=== PATIENT | male | born 1965 | race Caucasian/White ===

== ENCOUNTER 2020-04-05 18:29 | Inpatient (IN) | payer SELFPAY ==
[~2020-04-05] VITALS: Ht 167.6 cm; Wt 83.4 kg
--- NOTE | 2020-04-05 18:53 | NUR ---
RECEICVED TRIAGE REPORT FROM ROYER CLARK
[2020-04-05 19:38] LABS: URINE BILIRUBIN - DIPSTICK NEGATIVE (NEGATIVE); URINE BLOOD DIPSTICK TRACE-INTACT (NEGATIVE); URINE COLOR YELLOW; URINE GLUCOSE - DIPSTICK >=1000 mg/dL (NEGATIVE); URINE KETONE NEGATIVE (NEGATIVE); URINE LEUK ESTERASE NEGATIVE (NEGATIVE); URINE NITRITE - DIPSTICK NEGATIVE (Negative); URINE PROTEIN - DIPSTICK >=300 mg/dL (NEG-TRACE); URINE SPECIFIC GRAVITY 1.025; URINE UROBILINOGEN - DIPSTICK >=8.0 E.U./dL (0.2)
[2020-04-05 19:40] LABS: URINE RBC 0-2 RBC/hpf (0-5); URINE WBC 0-2 WBC/hpf (0-5)
[2020-04-05 19:40] LABS: HEMATOCRIT 41.5 % (39.0-50.0); HEMOGLOBIN 15.4 g/dl (14.0-18.0); IMMATURE GRANULOCYTES 0.3 % (0.0-5.0); MEAN CELL VOLUME 82.8 fL CALC (80.0-100.0); MEAN CORPUSCULAR HGB 30.7 pG CALC (26.0-32.0); MEAN CORPUSCULAR HGB CONC 37.1 g/dL CAL (32.0-36.0); NEUT# 2.93 thou/uL (1.82-7.42); RED BLOOD COUNT 5.01 mill/uL (4.70-6.10); RED CELL DISTRI WIDTH 10.6 % (11.5-15.5)
[2020-04-05 19:55] LABS: ALBUMIN 3.6 g/dL (3.2-5.0); ALKALINE PHOSPHATASE 144 u/l (38-126); AMYLASE 69 u/l (30-110); ANION GAP 12 (6-22 (CALC)); BILIRUBIN, TOTAL 1.5 mg/dL (0.0-1.4); BUN 12 mg/dL (9-20); BUN/CREATININE RATIO 20 (12-20 (CALC)); CARBON DIOXIDE 25 mmol/l (22-30); CHLORIDE 98 mmol/l (95-108); CREATININE 0.6 mg/dL (0.7-1.3); GFR > 60 ML/MIN (>=60 (CALC)); GFR FOR AFR.AMER. > 60 ML/MIN (>=60 (CALC)); LIPASE 102 u/l (23-300); POTASSIUM 3.7 mmol/l (3.5-5.1); SGOT/AST 66 u/l (17-59); SODIUM 132 mmol/l (137-146); TOTAL PROTEIN 7.3 g/dL (6.3-8.2)
--- NOTE | 2020-04-05 21:00 | NUR ---
RESTING QUIETLY, NO C/O PAIN OR DISCOMFORT, NO S/SD OF DISTRESS NOTED.
--- NOTE | 2020-04-05 22:41 | NUR ---
PATIENT RESTING QUIETLY, NO C/O PAIN OR DISCOMFORT AT THIS TIME, NO S/S OF DISTRESS NOTED, RESPIRATIONS EVEN AND SLIGHTLY LABORED. AWAKE AND ALERT, PATIENT STATES FEELING MUCH BETTER.
--- NOTE | 2020-04-06 00:10 | NUR ---
REPORT RECEIVED FROM Brennan DAVILA RN IN ED
--- NOTE | 2020-04-06 00:12 | NUR ---
HAND OFF REPORT GIVEN TO ROYER MARTINEZ.
--- NOTE | 2020-04-06 00:20 | NUR ---
PATIENT ESCORTED TO INPATIENT ROOM BY WHEELCHAIR, NO C/O PAIN OR DISCOMFORT, NO S/S OF DISTRESS NOTED, RESPIRATIONS EVEN AND UNLABORED, ABLE TO AMBULATE INDEPENDENTLY.
[2020-04-06 00:25] VITALS: BP 123/74
--- NOTE | 2020-04-06 02:20 | NUR ---
PT ARRIVES TO UNIT @ 0220 VIA WC, AMBULATORY TO BED. GAIT STEADY AND BALANCED. PT ADMITTED TO ROOM 283. ORIENTED TO UNIT AND ROOM. PLAN OF CARE REVIEWED. PT DENIES QUESTIONS, VERBALIZES UNDERSTANDING. PHYSICAL ASSESMENT COMPLETE. PT DENIES NEEDS @ THIS TIME. ITEMS WITHIN REACH. BED LOCKED IN LOW POSITION W/ BEDRAILS UP X2. CALL RAMIREZ WITHIN REACH, AGREES TO CALL PRN.
[2020-04-06 03:33] VITALS: BP 135/78
--- NOTE | 2020-04-06 05:40 | NUR ---
AM LABS DRAWN.
[2020-04-06 06:17] LABS: HEMATOCRIT 38.3 % (39.0-50.0); HEMOGLOBIN 13.6 g/dl (14.0-18.0); IMMATURE GRANULOCYTES 0.3 % (0.0-5.0); MEAN CELL VOLUME 85.5 fL CALC (80.0-100.0); MEAN CORPUSCULAR HGB 30.4 pG CALC (26.0-32.0); MEAN CORPUSCULAR HGB CONC 35.5 g/dL CAL (32.0-36.0); NEUT# 2.28 thou/uL (1.82-7.42); RED BLOOD COUNT 4.48 mill/uL (4.70-6.10); RED CELL DISTRI WIDTH 10.6 % (11.5-15.5)
[2020-04-06 06:37] LABS: ALBUMIN 3.1 g/dL (3.2-5.0); ALKALINE PHOSPHATASE 116 u/l (38-126); ANION GAP 9 (6-22 (CALC)); BILIRUBIN, TOTAL 1.4 mg/dL (0.0-1.4); BUN 11 mg/dL (9-20); BUN/CREATININE RATIO 16 (12-20 (CALC)); C-REACTIVE PROTEIN 8.4 mg/dL (0-0.9); CARBON DIOXIDE 27 mmol/l (22-30); CHLORIDE 102 mmol/l (95-108); CREATININE 0.7 mg/dL (0.7-1.3); GFR > 60 ML/MIN (>=60 (CALC)); GFR FOR AFR.AMER. > 60 ML/MIN (>=60 (CALC)); POTASSIUM 3.8 mmol/l (3.5-5.1); SGOT/AST 59 u/l (17-59); SODIUM 134 mmol/l (137-146); TOTAL PROTEIN 6.4 g/dL (6.3-8.2)
[2020-04-06 08:10] VITALS: BP 122/68
--- NOTE | 2020-04-06 09:00 | NUR ---
PT IS ALERT, ORIENTED X 3, AMBULATORY IN THE ROOM. LUNGS CLEAR, RA. NO DISTRESS NOTED, NO SHORTNESS OF BREATH MENTION. IV INFUSING. AFEBRILE.
[2020-04-06 11:00] VITALS: BP 155/91
--- NOTE | 2020-04-06 13:00 | NUR ---
PT REMAINS AT REST IN THE BED WITHOUT COMPLAINT OR EVIDENCE OF DISTRESS.
[2020-04-06 15:52] VITALS: BP 180/88
[2020-04-06 19:00] VITALS: BP 160/84
--- NOTE | 2020-04-06 19:30 | NUR ---
ASSESSMENT COMPLETED. NO DISTRESS NOTED; DENIES NEEDS/PAIN. ENCOURAGED TO CALL FOR ANY NEEDS. PT. REPORTS PRODUCTIVE COUGH; NONE TO INSPECT AT THIS TIME. ENCOURAGED TO CALL FOR ANY NEEDS. CALL LIGHT IS IN REACH. WILL CONTINUE TO MONITOR.
--- NOTE | 2020-04-06 21:02 | NUR ---
PT. RESTING IN BED ON PHONE. NO DISTRESS NOTED. DENIES NEEDS.
--- NOTE | 2020-04-07 00:20 | NUR ---
RESTING IN BED ON LEFT SIDE WITH NO DISTRESS NOTED; DENIES NEEDS. URINAL EMPTIED; SCHED ANTIBIOTIC HUNG. ENCOURAGED TO CALL FOR ANY NEEDS. CALL LIGHT IS IN REACH.
[2020-04-07 04:20] VITALS: BP 153/83
[2020-04-07 08:00] VITALS: BP 124/67
--- NOTE | 2020-04-07 09:00 | NUR ---
PT AWAKE, ALERT, ORIENTED X 3, SEEN AMBULATORY IN ROOM WITHOUT DIFFICULTY. NO COMPLAINT OF SHORTNESS OF BREATH OR OTHERWISE.
--- NOTE | 2020-04-07 13:00 | NUR ---
PT SEEN BY DR NIEVES, TO CONTINUE TO MONITOR HIS PROGRESS FOR ANOTHER DAY. PT IN NO DISTRESS, DOES HAVE INTERMITTENT TEMPERATURE ELEVATION.
[2020-04-07 15:27] VITALS: BP 138/64
--- NOTE | 2020-04-07 16:48 | NUR ---
PT RUNNING LOW GRADE FEVER OF 100.6, PROVIDED TYLENOL, NOW 100.9. DR NIEVES AWARE, AWAITING NEW ORDERS.
[2020-04-07 19:00] VITALS: BP 158/88
--- NOTE | 2020-04-07 20:09 | NUR ---
PT. C/O BUI 06/21 AND MEDICATED WITH ORDERED PRN MOTRIN; WILL REASSESS. PO FLUIDS OFFERED. ASSESSMENT COMPLETED. VOICES NO CONCERNS. ENCOURAGED TO CALL FOR ANY NEEDS. CALL LIGHT IS IN REACH. WILL CONTINUE TO MONITOR.
--- NOTE | 2020-04-07 23:08 | NUR ---
PT. C/O BUI AND MEDICATED WITH ORDERED PRN TYLENOL; WILL REASSESS. TEMP 97.3; WILL CONTINUE TO MONITOR.
[2020-04-08 03:05] VITALS: BP 106/69
--- NOTE | 2020-04-08 03:05 | NUR ---
AM LABS OBTAINED AND VSS; NO DISTRESS NOTED; DENIES NEEDS/PAIN. ENCOURAGED TO CALL FOR ANY NEEDS.
[2020-04-08 04:25] LABS: HEMATOCRIT 40.5 % (39.0-50.0); IMMATURE GRANULOCYTES 0.3 % (0.0-5.0); MEAN CELL VOLUME 83.3 fL CALC (80.0-100.0); MEAN CORPUSCULAR HGB 30.9 pG CALC (26.0-32.0); NEUT# 1.89 thou/uL (1.82-7.42); RED BLOOD COUNT 4.86 mill/uL (4.70-6.10); RED CELL DISTRI WIDTH 10.6 % (11.5-15.5)
[2020-04-08 04:38] LABS: ALBUMIN 3.1 g/dL (3.2-5.0); ALKALINE PHOSPHATASE 117 u/l (38-126); ANION GAP 12 (6-22 (CALC)); BILIRUBIN, TOTAL 1.5 mg/dL (0.0-1.4); BUN 7 mg/dL (9-20); BUN/CREATININE RATIO 13 (12-20 (CALC)); CARBON DIOXIDE 24 mmol/l (22-30); CHLORIDE 103 mmol/l (95-108); CREATININE 0.6 mg/dL (0.7-1.3); GFR > 60 ML/MIN (>=60 (CALC)); GFR FOR AFR.AMER. > 60 ML/MIN (>=60 (CALC)); POTASSIUM 3.6 mmol/l (3.5-5.1); SGOT/AST 69 u/l (17-59); SODIUM 135 mmol/l (137-146); TOTAL PROTEIN 6.6 g/dL (6.3-8.2)
[2020-04-08 04:54] LABS: C-REACTIVE PROTEIN 16.2 mg/dL (0-0.9)
--- NOTE | 2020-04-08 06:54 | NUR ---
NOTIFIED DR. NIEVES OF POSITIVE COVID SWAB RESULT.
[2020-04-08 08:00] VITALS: BP 136/75
--- NOTE | 2020-04-08 09:00 | NUR ---
PT SEEN AWAKE, ALERT, ORIENTED X 3. PT WITH FEVER THIS MORNING OF 100.9, PROVIDED MOTRIN FOR THAT AND HEADACHE.
--- NOTE | 2020-04-08 13:00 | NUR ---
PT SEEN AT REST IN THE BED, PROVIDED MOTRIN FOR RELIEF OF HEADACHE PAIN AND FEVER. PT TEARFUL UPON ENTERING ROOM, PERHAPS A BIT FRUSTRATED. NO DISTRESS, NO COMPLAINTS.
[2020-04-08 16:07] VITALS: BP 131/67
--- NOTE | 2020-04-08 17:52 | NUR ---
PT REMAINS BEFORE, RESTS IN THE BED IN NO ACUTE DISTRESS.
[2020-04-08 19:20] VITALS: BP 138/85
--- NOTE | 2020-04-08 19:20 | NUR ---
PT. SITTING UP ON THE SIDE OF THE BED EATING DINNER;ASSESSMENT COMPLETED. NO DISTRESS NOTED; DENIES NEEDS/PAIN. VSS. URINAL EMPTIED. ENCOURAGED TO CALL FOR ANY NEEDS. CALL LIGHT IS IN REACH.
--- NOTE | 2020-04-08 21:10 | NUR ---
PT. RESTING IN BED WITH NO DISTRESS NOTED; DENIES NEEDS/PAIN. URINAL EMPTIED. ENCOURAGED TO CALL FOR ANY NEEDS.
--- NOTE | 2020-04-08 23:20 | NUR ---
TEMP CHECKED AND IS 97.0; DENIES NEEDS/PAIN. ENCOURAGED TO CALL FOR ANY NEEDS. CALL LIGHT IS IN REACH. WILL CONTINUE TO MONITOR.
[2020-04-09 03:35] VITALS: BP 137/75
--- NOTE | 2020-04-09 03:35 | NUR ---
VSS. AM LABS OBTAINED. DENIES NEEDS/PAIN. IV SITE PATENT AND ORDERED IVF INFUSING WELL. ENCOURAGED TO CALL FOR ANY NEEDS. URINAL EMPTIED AND REPORTS HAVING A BM LAST NIGHT.
--- NOTE | 2020-04-09 05:00 | NUR ---
RESTING IN BED WITH EYES CLOSED; NO DISTRESS NOTED. CALL LIGHT IS IN REACH.
[2020-04-09 05:21] LABS: HEMATOCRIT 38.5 % (39.0-50.0); IMMATURE GRANULOCYTES 0.5 % (0.0-5.0); MEAN CELL VOLUME 83.2 fL CALC (80.0-100.0); MEAN CORPUSCULAR HGB 30.2 pG CALC (26.0-32.0); MEAN CORPUSCULAR HGB CONC 36.4 g/dL CAL (32.0-36.0); NEUT# 2.93 thou/uL (1.82-7.42); RED BLOOD COUNT 4.63 mill/uL (4.70-6.10); RED CELL DISTRI WIDTH 10.6 % (11.5-15.5)
[2020-04-09 05:42] LABS: ALBUMIN 3.3 g/dL (3.2-5.0); ALKALINE PHOSPHATASE 119 u/l (38-126); BILIRUBIN, TOTAL 1.2 mg/dL (0.0-1.4); BUN 12 mg/dL (9-20); BUN/CREATININE RATIO 25 (12-20 (CALC)); CHLORIDE 107 mmol/l (95-108); CREATININE 0.5 mg/dL (0.7-1.3); GFR > 60 ML/MIN (>=60 (CALC)); GFR FOR AFR.AMER. > 60 ML/MIN (>=60 (CALC)); POTASSIUM 3.9 mmol/l (3.5-5.1); SGOT/AST 60 u/l (17-59); SODIUM 136 mmol/l (137-146); TOTAL PROTEIN 6.7 g/dL (6.3-8.2)
[2020-04-09 05:51] LABS: ANION GAP 15 (6-22 (CALC)); CARBON DIOXIDE 18 mmol/l (22-30)
[2020-04-09 08:40] VITALS: BP 134/72
--- NOTE | 2020-04-09 08:40 | NUR ---
ASSESSMENT IS COMPLETED: IV SITE IS FREE FROM REDNESS OR EDEMA. HR IS REG,PULSES ARE STRONG X4, ABD IS SOFT WITH ACTIVE BS. BREATH SOUNDS ARE CLEAR, BILATERALLY, HAS SOME SPUTUM BROWNISH. THIN. CONTINUE TO OBSERVE AND MONITOR.
[2020-04-09 10:45] VITALS: BP 151/81
--- NOTE | 2020-04-09 12:45 | NUR ---
CONCERNED ABOUT PT O2 NO DISTRESS NOTED. WAS 88% ON RA. WILL CONTINUE TO RECHECK. IV SITE IS FREE FROM REDNESS ORE JOE. CONTINEU TO OBSERVE AND MONITOR.
[2020-04-09 16:29] VITALS: BP 118/79
--- NOTE | 2020-04-09 16:45 | NUR ---
O2 SAT REMAINED AT 88%, NO DISTRESS NOTED. INQUIRED OF PT WAS HAVING ANY CP OR SOB, WHEN GETTING IN THE SHOWER THEN HAD SOME SOB. PLACED O2 ON PT SOON HE CAME OUT OF THE SHOWER.
[2020-04-09 19:42] VITALS: BP 142/79
--- NOTE | 2020-04-09 21:10 | NUR ---
PT WATCHING SOMETHING ON CELLPHONE. LIGHTS ARE OUT. PT ASSESSMENT COMPLETED AT THIS TIME. 02 SAT LEVELS ARE AT 88% ON 1L SET UPON ENTERING ROOM. 02 TITRATED UP, PT IS AT 4L SAT HOLDING @90% WILL CONTINUE TO MONITOR FOR SAT LEVELS.
--- NOTE | 2020-04-09 21:30 | NUR ---
PT OXYGEN SAT LEVEL 90% ON 4L, SAT LEVELS DROP IF OXYGEN TURNED TO 3L OR LOWER.
--- NOTE | 2020-04-09 23:22 | NUR ---
ANTIBIOTIC THERAPY ADMINISTERED AT THIS TIME. CALL LIGHT AT SIDE.
[2020-04-10] VITALS (12 sets, daily range): BP systolic 128–158; BP diastolic 66–94
--- NOTE | 2020-04-10 05:20 | NUR ---
PT MEDICATED ORDERS PROVIDE, LABS DRAWN AT THIS TIME. CALL LIGHT AT SIDE.
[2020-04-10 06:06] LABS: HEMATOCRIT 35.5 % (39.0-50.0); HEMOGLOBIN 13.1 g/dl (14.0-18.0); IMMATURE GRANULOCYTES 0.5 % (0.0-5.0); MEAN CELL VOLUME 82.6 fL CALC (80.0-100.0); MEAN CORPUSCULAR HGB 30.5 pG CALC (26.0-32.0); MEAN CORPUSCULAR HGB CONC 36.9 g/dL CAL (32.0-36.0); NEUT# 4.81 thou/uL (1.82-7.42); RED BLOOD COUNT 4.3 mill/uL (4.70-6.10); RED CELL DISTRI WIDTH 10.6 % (11.5-15.5)
[2020-04-10 06:45] LABS: ALBUMIN 2.9 g/dL (3.2-5.0); ALKALINE PHOSPHATASE 114 u/l (38-126); ANION GAP 13 (6-22 (CALC)); BILIRUBIN, TOTAL 1.2 mg/dL (0.0-1.4); BUN 12 mg/dL (9-20); BUN/CREATININE RATIO 21 (12-20 (CALC)); CARBON DIOXIDE 20 mmol/l (22-30); CHLORIDE 103 mmol/l (95-108); CREATININE 0.6 mg/dL (0.7-1.3); GFR > 60 ML/MIN (>=60 (CALC)); GFR FOR AFR.AMER. > 60 ML/MIN (>=60 (CALC)); POTASSIUM 3.6 mmol/l (3.5-5.1); SGOT/AST 49 u/l (17-59); SODIUM 133 mmol/l (137-146); TOTAL PROTEIN 6.4 g/dL (6.3-8.2)
[2020-04-10 07:06] LABS: C-REACTIVE PROTEIN 12.6 mg/dL (0-0.9)
--- NOTE | 2020-04-10 08:30 | NUR ---
ASSESSMENT IS COMPLETED: IV SITE IS FREE FROM REDNESS OR EDEMA. HR IS REG,PULSES ARE STRONG X4, ABD IS SOFT WITH ACTIVE BS. BM TODAY. CONTINEU TO OBSERVE AND MONITOR. O2 KEEPS DROPPING TO 83% UP TO 5 LITERS NOW 92%
--- NOTE | 2020-04-10 12:31 | NUR ---
INFORMED BY KENTRELL ZAMORA RE: PT BEING MOVED TO ICU. DUE TO O2 LEVEL AND ON 5 LITERS
--- NOTE | 2020-04-10 14:03 | NUR ---
JERILYN SAM FROM OR RECEIVED A CALL FROM FAMILY RE: PT INQUIRING ABOUT WHAT IS GOING ON. INFORMED OF PT GOING TO BE TRANSFERRED TO ICU DUE TO O2 LEVEL BEING LOW AND NOT SUSTAINING. ALSO THE NEW MEDICATION HAS TO BE ORDERED. FROM THE STATE. WILL INFORM FAMILY SOON WE GET A ROOM.
--- NOTE | 2020-04-10 15:07 | NUR ---
report received from Kym Alonso LPN
--- NOTE | 2020-04-10 15:50 | NUR ---
male pt received to ICU bed 3 from med surg via wc accompanied by med surg staff x2 in stable condition; ambulatory to bed with steady gait; assessment completed at this time; Cecil Rodas RN present at bedside to interpret; pt alert and oriented; admits to chest pain from coughing; no n/v noted; resp even and unlabored; lungs clear/ diminished bases; skin color wnl; o2 per nc at 5L; manager poker cough noted; hr reg; strong pulses; no edema noted; st on monitor; abd soft with bs present; no bm noted per poem writer; pt admits to voiding without complication; no urine to inspect at this time; urinal placed at bedside; #18 patent to rac with ivf infusing without complication; no redness or edema noted at site; plan of care/ meds/ transfer explained; call light within reach; will continue to monitor
--- NOTE | 2020-04-10 16:00 | NUR ---
PT TRANSFERRED TO ROOM 3 VIA WC WITH STAFF AND BELONGINGS. IV SITE IS FREE FROM REDNESS OR EDEMA. ALL BELONGINGS. SENT WITH PT.
--- NOTE | 2020-04-10 18:06 | NUR ---
awake in bed eating dinner; no apparent distress noted; pt offers no complaints; iv intact and patent; no redness or edema noted at site; st on monitor; o2 per nc; call light within reach
--- NOTE | 2020-04-10 20:00 | NUR ---
RECEIVED REPORT. BEDRESTING. RESP EVEN AND NONLABORED. WATCHING TV. N/C OR DISTRESS NOTED AT THIS TIME
--- NOTE | 2020-04-10 21:30 | NUR ---
BEDRESTING. EATING AND DRINKING. FAMILY BROUGHT A JUG OF HOT TEA/COFFEE (AND DROPPED OFF) PT SAID WARM FLUIDS FEEL BETTER.
--- NOTE | 2020-04-10 23:30 | NUR ---
BEDRESTING. WATCHING BOXING ON TV. SELDOM COUGHS BUT STATES HE DOES HAVE SOME PLEM THAT SOMES UP WHEN HE COUGHS. NO SOB NOTED AT THIS TIME
[2020-04-11] VITALS (11 sets, daily range): BP systolic 121–165; BP diastolic 59–92
--- NOTE | 2020-04-11 00:58 | NUR ---
BEDRESTING. SLEEPING ON RIGHT SIDE-RESP EVEN AND NONLABORED. AFEBRILE.
--- NOTE | 2020-04-11 02:34 | NUR ---
BEDRESTING. LIGHTS OUT. TV OFF. RESP EVEN AND NONLABORED. NO DISTRESS NOTED
--- NOTE | 2020-04-11 04:00 | NUR ---
BEDRESTING. NO COUGH OR DISTRESS
[2020-04-11 05:19] LABS: HEMATOCRIT 36.3 % (39.0-50.0); HEMOGLOBIN 13.6 g/dl (14.0-18.0); IMMATURE GRANULOCYTES 0.8 % (0.0-5.0); MEAN CELL VOLUME 82.1 fL CALC (80.0-100.0); MEAN CORPUSCULAR HGB 30.8 pG CALC (26.0-32.0); MEAN CORPUSCULAR HGB CONC 37.5 g/dL CAL (32.0-36.0); NEUT# 4.92 thou/uL (1.82-7.42); RED BLOOD COUNT 4.42 mill/uL (4.70-6.10); RED CELL DISTRI WIDTH 10.6 % (11.5-15.5)
[2020-04-11 05:39] LABS: ALBUMIN 3.3 g/dL (3.2-5.0); ALKALINE PHOSPHATASE 114 u/l (38-126); ANION GAP 13 (6-22 (CALC)); BILIRUBIN, TOTAL 1.3 mg/dL (0.0-1.4); BUN 16 mg/dL (9-20); BUN/CREATININE RATIO 26 (12-20 (CALC)); CARBON DIOXIDE 23 mmol/l (22-30); CHLORIDE 103 mmol/l (95-108); CREATININE 0.6 mg/dL (0.7-1.3); GFR > 60 ML/MIN (>=60 (CALC)); GFR FOR AFR.AMER. > 60 ML/MIN (>=60 (CALC)); POTASSIUM 3.7 mmol/l (3.5-5.1); SGOT/AST 38 u/l (17-59); SODIUM 135 mmol/l (137-146); TOTAL PROTEIN 6.7 g/dL (6.3-8.2)
--- NOTE | 2020-04-11 06:00 | NUR ---
BEDRESTING. N/C AT THIS TIME
[2020-04-11 06:06] LABS: C-REACTIVE PROTEIN 13.6 mg/dL (0-0.9)
--- NOTE | 2020-04-11 06:40 | NUR ---
BEDRESTING. NO DISTRESS AT THIS TIME
--- NOTE | 2020-04-11 06:55 | NUR ---
REPORT GIVEN. BEDRESTING
--- NOTE | 2020-04-11 07:45 | NUR ---
PT RESTING IN BED, A&OX3, ABLE TO MAKE NEEDS KNOWN. RESPIRATIONS EVEN/UNLABORED, SOB WITH MINIMAL EXERTION. LS CLEAR/DIMISHED, SA02@93% ON 5LPM/NC. ABDOMEN SOFT,NON-TENDER. LBM 7-1-20. 18G RAC/SL. FLUSHES WITHOUT DIFFICULTY, NO S/S OF INFILTRATION OR INFECTION AT SITE. CALL LIGHT IN REACH. WILL MONITOR.
--- NOTE | 2020-04-11 08:00 | NUR ---
PT UP TO BSC FOR BM. PT STEADY ON HIS FEET.
--- NOTE | 2020-04-11 08:08 | NUR ---
PT ASSISTED BACK TO BED AFTER MODERATE DARK BROWN FORMED BM. RESUMED BREAKFAST.
--- NOTE | 2020-04-11 08:33 | NUR ---
DR. CAST AT BEDSIDE FOR ASSESSMENT AND TO DISCUSS PLAN OF CARE, NEW ORDERS RECIEVED.
--- NOTE | 2020-04-11 09:00 | NUR ---
PT SET UP FOR SELF BATH. PT TOLERATED WELL.
--- NOTE | 2020-04-11 10:00 | NUR ---
PT ASSISTED TO PRONE POSITION, PT TOLERATED WELL. CALL LIGHT IN REACH. WILL MONITOR.
--- NOTE | 2020-04-11 11:30 | NUR ---
DIETARY ON UNIT, PT DECLINED TRAY SET UP AT THIS TIME. PT CONTINUES IN PRONE POSITION. CALL LIGHT IN REACH. WILL MONITOR.
--- NOTE | 2020-04-11 13:50 | NUR ---
PT RESTING IN SUPINE WITH HOB UP. NO DISTRESS NOTED AT THIS TIME. CALL LIGHT IN REACH. WILL MONITOR.
--- NOTE | 2020-04-11 15:15 | NUR ---
PT RESTING BACK IN PRONE, INTERMITTENT COUGH NOTED WITH THIN WHIT MUCOUS. RESPIRATIONS EVEN/UNLABORED, REMAIN SOB WITH EXERTION, CALL LIGHT IN REACH. WILL MONITOR.
--- NOTE | 2020-04-11 16:31 | NUR ---
PT SITTING UP IN BED, TALKING ON PERSONAL CELL PHONE. CALL LIGHT IN REACH. WILL MONITOR.
--- NOTE | 2020-04-11 18:23 | NUR ---
PT RESTING IN BED WATCHING TV, ENCOURAGED TO PRONE POSITION, CALL LIGHT IN REACH. WILL MONITOR.
--- NOTE | 2020-04-11 20:45 | NUR ---
PATIENT RESTING IN BED TALKING ON PHONE. SHIFT ASSESSMENT COMPLETE. NO DISTRESS NOTED. ASSISTED PATIENT TO BEDSIDE COMODE. VS STABLE. RESPIRATIONS EVEN AND UNLABORED. LUNGS DIMINISHED. LBM 04/11/20. PATIENT VOIDS IN URINAL. DENIES NAUSEA. PRODUCTIVE COUGH. IV PATENT. CALL LIGHT IN REACH. WILL CONTINUE TO MONITOR.
--- NOTE | 2020-04-11 22:08 | NUR ---
PATIENT RESTING IN BED. NO DISTRESS NOTED. CALL LIGHT IN REACH. CONTINUE TO MONITOR.
[2020-04-12] VITALS (12 sets, daily range): BP systolic 111–171; BP diastolic 66–90
--- NOTE | 2020-04-12 00:10 | NUR ---
PATIENT SLEEPING ON RT SIDE. NO DISTRESS NOTED. RESPIRATIONS EVEN AND UNLABORED. MEDICATIONS ADMINISTERED PER MAR. CONTINUE TO MONITOR.
--- NOTE | 2020-04-12 02:00 | NUR ---
PATIENT RESTING IN BED. RESP EVEN AND UNLABORED. WILL CONTINUE TO MONITOR.
--- NOTE | 2020-04-12 04:56 | NUR ---
PATIENT SLEEPING. NO DISRESS NOTES. CONTINUE TO MONITOR.
--- NOTE | 2020-04-12 06:39 | NUR ---
PATIENT SLEEPING LAYING ON RT SIDE. NO DISTRESS NOTED. ADMINISTERED ZOSYN PER DEC. URINE OUTPUT 900.
--- NOTE | 2020-04-12 06:45 | NUR ---
RECIEVED REPORT FROM ROYER DUMONT. ASSUMED PT CARE.
--- NOTE | 2020-04-12 07:15 | NUR ---
PT RESTING IN BED IN SUPINE POSITION. PT SA02@90% ON 5LPM/NC VIA HF, PT ROTATED TO PRONE POSITION AND IMMEDIATE IMPROVEMENT NOTED IN SA02@ 100%. PT A70X3, ABLE TO MAKE NEEDS KNOWN. RESPIRATIONS EVEN/UNLABORED, LS CLEAR/DIMINISHED. ABDOMEN SOFT, NON-TENDER, LBM 7-2-20. 18G RAC/SL, FLUSHES WITHOUT DIFFICULTY, NO S/S OF INFILTRATION OR INFECTION NOTED AT SITE. CALL LIGHT IN REACH. WILL MONITOR.
--- NOTE | 2020-04-12 07:30 | NUR ---
DIETARY ON UNIT, PT DECLINED TRAY AT THIS TIME. WILL MONITOR.
--- NOTE | 2020-04-12 10:30 | NUR ---
RT CALLED TO ROOM FOR DESAT O2 OF 86%. ABG ORDERED.
--- NOTE | 2020-04-12 10:37 | NUR ---
DR CAST NOTIFIED OF PTS STATUS.
--- NOTE | 2020-04-12 11:53 | NUR ---
PT RESTING IN PRONE POSITION, RESPIRATIONS EVEN/UNLABORED. SA02@98%. CALL LIGHT IN REACH. WILL MONITOR.
--- NOTE | 2020-04-12 14:00 | NUR ---
PT RESTING IN BED , PRONE, EYES CLOSED. NO DISTRESS NOTED AT THIS TIME. CALL LIGHT IN REACH. WILL MONITOR.
--- NOTE | 2020-04-12 16:00 | NUR ---
PT REMAINS IN PRONE POSITION, RESPIRATIONS EVEN/UNLABORED CALL LIGHT IN REACH. WILL MONITOR.
--- NOTE | 2020-04-12 18:00 | NUR ---
PT SITTING UP IN BED, EATING DINNER. NO DISTRESS NOTED AT THIS TIME.CALL LIGHT IN REACH. WILL MONITOR.
--- NOTE | 2020-04-12 22:56 | NUR ---
PT UP TO BSC, STEADY GAIT. WILL CALL WHEN DONE WITH BSC.
--- NOTE | 2020-04-12 23:00 | NUR ---
PT ABLE TO USE BSC, NOW LAYS SAFELY BACK IN BED. HAD A BM. HIGH FL NC WEANED TO 10 L/MIN, SATS 95% AND IS LAYING IN PRONE POSITION. ICED WATER PROVIDED, JUICE POURED INTO HIS CUP FROM FAMILY THAT DROPPED OFF JUICE. URINAL EMPTIED. CALL LIGHT WITHIN REACH. PT OFFERS NO OTHER NEEDS OR COMPLAINTS.
[2020-04-13] VITALS (11 sets, daily range): BP systolic 104–140; BP diastolic 65–91
--- NOTE | 2020-04-13 00:40 | NUR ---
ANTIBIOTIC IFUSING, PT O2 WEANED TO 7 L/MIN, SATS 94%, REMAINS IN PRONE POSITION. NO ACUTE DISTRESS SHOWN. CALL LIGHT WITHIN REACH.
--- NOTE | 2020-04-13 03:14 | NUR ---
pt drops his urinal on the floor, requests iced water, provided. ice for orange juice provided. pt uses urinal, now lays prone. pt does desat when lays with hob 30 degrees.
[2020-04-13 06:35] LABS: HEMATOCRIT 39.5 % (39.0-50.0); HEMOGLOBIN 14.2 g/dl (14.0-18.0); IMMATURE GRANULOCYTES 0.9 % (0.0-5.0); MEAN CORPUSCULAR HGB 30.2 pG CALC (26.0-32.0); MEAN CORPUSCULAR HGB CONC 35.9 g/dL CAL (32.0-36.0); NEUT# 5.55 thou/uL (1.82-7.42); RED BLOOD COUNT 4.7 mill/uL (4.70-6.10); RED CELL DISTRI WIDTH 10.6 % (11.5-15.5)
[2020-04-13 06:54] LABS: ALBUMIN 3.3 g/dL (3.2-5.0); ALKALINE PHOSPHATASE 106 u/l (38-126); BILIRUBIN, TOTAL 1.1 mg/dL (0.0-1.4); BUN 23 mg/dL (9-20); BUN/CREATININE RATIO 40 (12-20 (CALC)); C-REACTIVE PROTEIN 2.8 mg/dL (0-0.9); CARBON DIOXIDE 24 mmol/l (22-30); CHLORIDE 104 mmol/l (95-108); CREATININE 0.6 mg/dL (0.7-1.3); GFR > 60 ML/MIN (>=60 (CALC)); GFR FOR AFR.AMER. > 60 ML/MIN (>=60 (CALC)); SGOT/AST 31 u/l (17-59); SODIUM 135 mmol/l (137-146); TOTAL PROTEIN 6.8 g/dL (6.3-8.2)
[2020-04-13 06:59] LABS: ANION GAP 12 (6-22 (CALC)); POTASSIUM 4.8 mmol/l (3.5-5.1)
--- NOTE | 2020-04-13 07:15 | NUR ---
pt resting in bed in prone position; no apparent distress noted; easily arousable; offers no complaints; assessment completed at this time; pt alert and oriented; speaks/ understand puerto rican; declined lang line; admits to some back pain from prone position; no n/v noted; resp even and unlabored; lungs clear/ diminished; skin color wnl; o2 per nc at 7L high flow; robotics software engineer cough noted; hr reg; strong pulses; no edema noted; sr on monitor; abd soft with bs present; no bm noted per senior underwriter; pt voiding without complication; urinal at bedside; #18 in rac patent with ivf infusing without complication; no redness or edema noted at site; plan of care/ am meds explained; call light within reach; will continue to monitor
--- NOTE | 2020-04-13 08:04 | NUR ---
awake in bed eating breakfast; o2 per nc; o2 sat noted at 86% with 7L o2; st on monitor; iv intact and patent; call light within reach; will continue to monitor
--- NOTE | 2020-04-13 09:30 | NUR ---
Dr Warner present at bedside to assess pt and discuss plan of care; A ROYER Rodas present at bedside to interpret; IS provided and instructed on use per A ROYER Rodas; will continue to monitor
--- NOTE | 2020-04-13 10:00 | NUR ---
awake in bed; noted using incentive spirometer; pt assisted to bsc as per request; st on monitor; call light within reach; will continue to monitor
--- NOTE | 2020-04-13 12:11 | NUR ---
pt awake in bed; no apparent distress noted; pt denies resp difficulty; o2 sat noted at 86% on 12L hi rodger; lunch provided; A Rodas to interpret; pt has been instructed to lay prone position once lunch is completed; sr on monitor; iv intact and patent; pt deny needs; call light within reach; will continue to monitor
--- NOTE | 2020-04-13 14:20 | NUR ---
asleep in prone position; no apparent distress noted; iv intact and patent; sr on monitor; o2 per nc; call light within reach; will continue to monitor
--- NOTE | 2020-04-13 15:53 | NUR ---
asleep in prone position; no apparent distress noted; resp even and unlabored; iv intact and patent; sr on monitor; o2 sat 99%; call light within reach; will continue to monitor
--- NOTE | 2020-04-13 18:01 | NUR ---
awake in bed; eating dinner; outside food provided from family; st on monitor; o2 per nc; iv intact and patent; diet explained; elevated blood glucose explained; call light within reach
--- NOTE | 2020-04-13 19:48 | NUR ---
BLOOD GLUCOSE PERFORMED: [id number]
--- NOTE | 2020-04-13 21:49 | NUR ---
PATIENT INDICATES UNDERSTANDING THAT HE SHOULD SLEEP PRONE
[2020-04-14] VITALS (12 sets, daily range): BP systolic 111–140; BP diastolic 59–85
--- NOTE | 2020-04-14 00:16 | NUR ---
PATIENT RESTING PRONE WITH EYES CLOSED. RESP EVEN AND UNLABORED. NO S/S OF DISTRESS NOTED.
--- NOTE | 2020-04-14 04:00 | NUR ---
PATIENT RESTING WITH EYES CLOSED PRONE. RESP EVEN AND UNLABORED. NO S/S OF DISTRESS NOTED.
--- NOTE | 2020-04-14 04:39 | NUR ---
PATIENT RESTING WITH EYES CLOSED PRONE. RESP EVEN AND UNLABORED. NO S/S OF DISTRESS NOTED.
--- NOTE | 2020-04-14 05:00 | NUR ---
NEW IV STARTED. 20 LAC. MORNING LABS DRAWN. 550 EMPTIED OUT OF URINAL
--- NOTE | 2020-04-14 05:50 | NUR ---
PATIENT UP TO BSC, LARGE BM.
--- NOTE | 2020-04-14 06:45 | NUR ---
REPORT RECEIVED FROM LIBRADO LINTON. CARE ASSUMED.
--- NOTE | 2020-04-14 07:20 | NUR ---
PT RESTING IN BED PRONE WITH EYES CLOSED. AROUSES TO VERBAL STIMULI. PT IS ALERT AND ORIENTED X3. SHIFT ASSESSMENT COMPLETED AT THIS TIME. IV PATENT X1. CALL LIGHT IN REACH. WILL CONTINUE TO MONITOR.
[2020-04-14 08:23] LABS: HEMATOCRIT 44.9 % (39.0-50.0); HEMOGLOBIN 15.7 g/dl (14.0-18.0); IMMATURE GRANULOCYTES 1.1 % (0.0-5.0); MEAN CELL VOLUME 85.4 fL CALC (80.0-100.0); MEAN CORPUSCULAR HGB 29.8 pG CALC (26.0-32.0); NEUT# 5.92 thou/uL (1.82-7.42); RED BLOOD COUNT 5.26 mill/uL (4.70-6.10); RED CELL DISTRI WIDTH 10.9 % (11.5-15.5)
[2020-04-14 08:36] LABS: ALBUMIN 3.5 g/dL (3.2-5.0); ALKALINE PHOSPHATASE 107 u/l (38-126); ANION GAP 13 (6-22 (CALC)); BILIRUBIN, TOTAL 1.4 mg/dL (0.0-1.4); BUN 20 mg/dL (9-20); BUN/CREATININE RATIO 28 (12-20 (CALC)); CARBON DIOXIDE 27 mmol/l (22-30); CHLORIDE 102 mmol/l (95-108); CREATININE 0.7 mg/dL (0.7-1.3); GFR > 60 ML/MIN (>=60 (CALC)); GFR FOR AFR.AMER. > 60 ML/MIN (>=60 (CALC)); POTASSIUM 4.1 mmol/l (3.5-5.1); SGOT/AST 27 u/l (17-59); SODIUM 138 mmol/l (137-146)
--- NOTE | 2020-04-14 09:30 | NUR ---
DR CAST AT BEDSIDE.
--- NOTE | 2020-04-14 10:17 | NUR ---
PT RESTING IN BED PRONE. RESP ARE EVEN AND UNLABORED. VSS ON MONITOR. CALL LIGHT IN REACH. WILL CONTINUE TO MONITOR
--- NOTE | 2020-04-14 12:18 | NUR ---
PT SITTING UP IN BED EATING LUNCH. RESP ARE EVEN AND UNLABORED. VSS ON MONITOR. CALL LIGHT IN REACH. WILL CONTINUE TO MONITOR
--- NOTE | 2020-04-14 14:36 | NUR ---
DAUGHTER PAT PHONED FOR UPDATE. UNABLE TO PROVIDE CODE. THIS ERP SPECIALIST INTO PT ROOM. PT GAVE PERMISSION TO GIVE CODE AND GIVE DAUGHTER ALL INFORMATION REGARDING HEALTH INFORMATION. UPDATE PROVIDED TO DAUGHTER. PT HAD A BM IN BSC. CALL LIGHT IN REACH. WILL CONTINUE TO MONITOR
--- NOTE | 2020-04-14 16:00 | NUR ---
PT RESTING IN BED IN PRONE POSITION. RESP ARE EVEN AND UNLABORED. VSS ON MONITOR. CALL LGIHT IN REACH. WILL CONTINUE TO MONITOR
--- NOTE | 2020-04-14 18:00 | NUR ---
PT RESTING IN BED PRONE. RESP ARE EVRN AND UNLABORED. VSS ON MONITOR.CALL LIGHT IN REACH. SET UP WITH PM MEAL. WILL CONTINUE TO MONITOR
--- NOTE | 2020-04-14 19:15 | NUR ---
PATIENT RESTING IN BED ON ROUNDS. IN PRONE POSITION AND AT REST, RESP ARE EVEN AND UNLABORED. O2 SAT 94% ON O2 8 L HF NC. BREATH SOUNDS DIMINISHED THROUGHOUT LUNG MOFFETT. SALINE LOCK IN LAC, SITE BENIGN, FLUSHED AND PATENT. SHIFT ASSESSMENT COMPLETED. DISCUSSED PLAN OF CARE AND IMPORTANCE OF LYING IN PRONE POSITION MUCH POSSIBLE. PATIENT VEBRALIZES UNDERSTANDING. EVENT AV OPERATOR SHOWS SR. DENIES NEEDS AT THIS TIME. CALL RAMIREZ IN REACH.
--- NOTE | 2020-04-14 21:40 | NUR ---
PATIENT GIVEN SS COVERAGE FOR HS ACCU CHECK. RESTING IN BED IN PRONE POSITION THE MAJORITY OF THE TIME. O2 SAT 94-96%
[2020-04-15] VITALS (11 sets, daily range): BP systolic 109–141; BP diastolic 62–87
--- NOTE | 2020-04-15 | NUR ---
SLEEPING ON ROUNDS. O2 SAT 99% WHILE LYING PRONE ON HF NC AT 10 L. SALINE LOCK IN LAC FLUSHED AND PATENT. MONITOR SR. VSS.
--- NOTE | 2020-04-15 02:00 | NUR ---
SLEEPING. CONTINUES TO REST IN PRONE POSITION, MAINTAINING O2 SATS 95-100% SR ON MONITOR.
--- NOTE | 2020-04-15 04:05 | NUR ---
CONTINUES TO REST IN PRONE POSITION. O2 SAT 99% ON 10 L HF NC, REDUCED O2 TO 8 L AT THIS TIME. WILL CONTINUE TO MONITOR CLOSELY.
--- NOTE | 2020-04-15 04:40 | NUR ---
BLOOD DRAWN FOR AM LABS.
[2020-04-15 05:24] LABS: HEMATOCRIT 41.8 % (39.0-50.0); IMMATURE GRANULOCYTES 1.2 % (0.0-5.0); MEAN CELL VOLUME 84.1 fL CALC (80.0-100.0); MEAN CORPUSCULAR HGB 30.2 pG CALC (26.0-32.0); MEAN CORPUSCULAR HGB CONC 35.9 g/dL CAL (32.0-36.0); NEUT# 5.94 thou/uL (1.82-7.42); RED BLOOD COUNT 4.97 mill/uL (4.70-6.10); RED CELL DISTRI WIDTH 10.8 % (11.5-15.5)
[2020-04-15 05:45] LABS: ALKALINE PHOSPHATASE 103 u/l (38-126); ANION GAP 9 (6-22 (CALC)); BILIRUBIN, TOTAL 1.1 mg/dL (0.0-1.4); BUN 18 mg/dL (9-20); BUN/CREATININE RATIO 33 (12-20 (CALC)); C-REACTIVE PROTEIN 5.3 mg/dL (0-0.9); CARBON DIOXIDE 25 mmol/l (22-30); CHLORIDE 104 mmol/l (95-108); CREATININE 0.6 mg/dL (0.7-1.3); GFR > 60 ML/MIN (>=60 (CALC)); GFR FOR AFR.AMER. > 60 ML/MIN (>=60 (CALC)); POTASSIUM 4.1 mmol/l (3.5-5.1); SGOT/AST 26 u/l (17-59); SODIUM 134 mmol/l (137-146); TOTAL PROTEIN 6.2 g/dL (6.3-8.2)
--- NOTE | 2020-04-15 07:15 | NUR ---
pt resting in prone position; no apparent distress noted; pt easily arousable; offers no complaints; assessment completed at this time; pt alert and oriented; speaks/understands upper sorbian; deny need for lang line; denies pain; no n/v noted; resp even and unlabored; lungs diminished bases; skin color wnl; o2 per nc at 8L; rn psychiatric cough noted; hr reg; strong pulses; no edema noted; sr on monitor; abd soft with bs present; no bm noted per director underwriter sales; no urine to inspect at this time; #20 flushed and patent to lac; no redness or edema noted at site; plan of care/ am meds explained; call light within reach; will conitnue to monitor
--- NOTE | 2020-04-15 08:15 | NUR ---
awake in bed eating breakfast; no apparent distress noted; o2 per nc; st on monitor; call light within reach; will continue to monitor
--- NOTE | 2020-04-15 10:02 | NUR ---
awake; xray at bedside; no apparent distress noted; o2 per nc; iv intact; st on monitor; call light within reach; will continue to monitor
--- NOTE | 2020-04-15 10:30 | NUR ---
pt awake in bed; designer/writer in to assess pt; o2 sat noted at 84% 8L; accucheck obtained at 293; pt with complaints of left sided chest pain rating 5/10; pt admits to pain being different from chest pain caused by coughing; trop obtained; pt instructed to lay in minh position; Dr Warner to be notified; will continue to monitor
--- NOTE | 2020-04-15 10:56 | NUR ---
Dr Warner present on unit; informed of pt complaints of chest pain to left side rating 5/10; has reviewed EKG; awaiting trop results; will continue to monitor
--- NOTE | 2020-04-15 12:15 | NUR ---
awake in bed; o2 titrated to 10L hi rodger NC for o2 sat of 88%; st on monitor; iv intact and patent; pt continues with complaint of left chest pain rating 5/10; MD informed and orders to be placed; call light within reach; will continue to monitor
--- NOTE | 2020-04-15 14:00 | NUR ---
resting in prone position; no apparent distress noted; pt offers no complaints; iv intact and patent; o2 per nc at 10L; sr on monitor; call light within reach; will continue to monitor
--- NOTE | 2020-04-15 16:07 | NUR ---
resting in bed in prone position; no apparent distress noted; resp even and unlabored; iv intact and patent; no redness or edema noted at site; sr on monitor; deny needs; call light within reach; will continue to monitor
--- NOTE | 2020-04-15 17:56 | NUR ---
awake in prone position talking on cell phone; no apparent distress noted; pt offers no complaints; admits to pain relief; o2 per nc at 10L; st on monitor; dinner provided; A Rodas at bedside to interpret in regards to elevated glucose levels, HgA1c, diabetes, diet; call light within reach
--- NOTE | 2020-04-15 19:45 | NUR ---
RESTING IN BED IN PRONE POSITION. O2 SAT 93-96% ON 10 L HF NC. QUICKLY DESATS WITH MINIMAL MOVEMENT. RESP SHALLOW. BREATH SOUNDS VERY DIMINISHED THROUGHOUT LUNG MOFFETT. SALINE LOCK INTACT IN LAC, SITE BENIGN. BACK ROLL LATHE OPERATOR SHOWS SR, ST WHEN DESATS. SHIFT ASSESSMENT COMPLETED. DISCUSSED PLAN OF CARE. DENIES NEEDS AT THIS TIME. CALL RAMIREZ IN REACH.
[2020-04-16] VITALS (9 sets, daily range): BP systolic 110–144; BP diastolic 70–86
--- NOTE | 2020-04-16 | NUR ---
RESTING IN PRONE POSITIN. LAC SALINE LOCK LFUSHED AND PATENT. NO COMPLAINTS VOICED. VSS.
--- NOTE | 2020-04-16 02:00 | NUR ---
RESTING WITH EYES CLOSED IN PRONE POSITION.
--- NOTE | 2020-04-16 04:00 | NUR ---
NO CHANGES TO REPORT. REMAINS RESTING PRONE. O2 SATS UPPER 90'S ON O2 AT 10 L HF NC. SR ON MONITOR.
[2020-04-16 05:26] LABS: HEMATOCRIT 42.3 % (39.0-50.0); IMMATURE GRANULOCYTES 1.6 % (0.0-5.0); MEAN CELL VOLUME 84.9 fL CALC (80.0-100.0); MEAN CORPUSCULAR HGB 30.1 pG CALC (26.0-32.0); MEAN CORPUSCULAR HGB CONC 35.5 g/dL CAL (32.0-36.0); NEUT# 5.22 thou/uL (1.82-7.42); RED BLOOD COUNT 4.98 mill/uL (4.70-6.10)
[2020-04-16 05:53] LABS: ALBUMIN 3.3 g/dL (3.2-5.0); ALKALINE PHOSPHATASE 100 u/l (38-126); ANION GAP 11 (6-22 (CALC)); BILIRUBIN, TOTAL 1.3 mg/dL (0.0-1.4); BUN 18 mg/dL (9-20); BUN/CREATININE RATIO 33 (12-20 (CALC)); C-REACTIVE PROTEIN 7.2 mg/dL (0-0.9); CARBON DIOXIDE 26 mmol/l (22-30); CHLORIDE 100 mmol/l (95-108); CREATININE 0.5 mg/dL (0.7-1.3); GFR > 60 ML/MIN (>=60 (CALC)); GFR FOR AFR.AMER. > 60 ML/MIN (>=60 (CALC)); SGOT/AST 28 u/l (17-59); SODIUM 133 mmol/l (137-146); TOTAL PROTEIN 6.7 g/dL (6.3-8.2)
--- NOTE | 2020-04-16 06:00 | NUR ---
REMAINS ON 10 L O2 PER HF NC. RESP SHALLOW. NO COMPLAINTS OF ANY DISCOMFORTS. SR ON MONITOR.
--- NOTE | 2020-04-16 06:45 | NUR ---
RECIEVED REPORT FROM ROYER PERALES. ASSUMED PT CARE.
--- NOTE | 2020-04-16 07:45 | NUR ---
PT SITTING UP IN BED, EATING BREAKFAST. A&0X3, ABLE TO MAKE NEEDS KNOWN. RESPIRATIONS EVEN/SHALLOW, O2@10LPM VIA HF/NC. LS DIMINISHED THROUGHOUT., 20G LAC/SL FLUSHED WITHOUT DIFFICULTY. ABDOMEN SOFT/NON-TENDER, BSX4 ACTIVE. PT DENIES CP AT THIS TIME. ACCU CHECK 276, SS/ COVERAGE GIVEN. AFTER BREAKFAST PT TO GO BACK TO PRONE POSITION. CALL LIGHT IN REACH. WILL MONITOR.
--- NOTE | 2020-04-16 09:15 | NUR ---
DR. CAST AT BEDSIDE FOR ASSESSMENT AND TO DISCUSS PLAN OF CARE, NEW ORDERS RECIEVED. CALL LIGHT IN REACH. WILL MONITOR.
--- NOTE | 2020-04-16 10:00 | NUR ---
PT ASSISTED TO BSC, XL SOFT BROWN BM. PT TOLERATED WELL. COMPLETE BATH. THEN BACK TO BED. CALL LIGHT IN REACH. WILL MONITOR.
--- NOTE | 2020-04-16 11:15 | NUR ---
PT RETURNED TO PRONE POSITION. PT TALKING ON PERSONAL CELL PHONE. CALL LIGHT IN REACH. WILL MONITOR.
--- NOTE | 2020-04-16 12:00 | NUR ---
PT SITTING UP IN BED, EATING LUNCH. SA02 96% ON 10LPM HF/NC. CALL LIGHT IN REACH. WILL MONITOR.
--- NOTE | 2020-04-16 13:59 | NUR ---
PT BACK TO PRONE POSITION. RESPIRATION EVEN/UNLABOERED. WILL MONITOR.
--- NOTE | 2020-04-16 15:21 | NUR ---
PT RESTING IN PRONE, USING IS AT BEDSIDE. CALL LIGHT IN REACH. WILL MONITOR.
--- NOTE | 2020-04-16 17:45 | NUR ---
PT ACCUCHECK 423, PT ATE 2 CORN ON COB AND SOUP FROM HOME THAT FAMILY BROUGHT IN 30 MIN [address] TO [address] CAST NOTIFIED. NEW ORDERS RECIEVED. CALL LIGHT IN REACH. WILL MONITOR.
--- NOTE | 2020-04-16 19:30 | NUR ---
PT RESTING IN BED, NO SIGNS OF DISTRESS NOTED, RESP EVEN AND UNLABORED. PT ALERT AND ORIENTED X3, [place] CITIZEN SPEAKING, SPECIMEN TECHNICIAN SPEAKS [place] CITIZEN. DISCUSSED POC, AND DIET WITH PT, PT IS WILLING TO MAKE CHANGES IN HIS DIET PT JUST NEEDS THE EDUCATION. ASSISTED PT TO BSC, PT O2 DROPPED TO 85% PT HAD A LARGE BM, ASSISTED PT BACK TO BED IN PRONE POSITION, SPO2 97%. CALL LIGHT IN REACH,CONTINUE TO MONITOR.
--- NOTE | 2020-04-16 19:57 | NUR ---
NOTIFIED OF BLOOD SUGAR 441, NEW ORDERS OBTAINED. DIETARY INFORMATION IN ROMANIAN PROVIDED.
--- NOTE | 2020-04-16 20:35 | NUR ---
PT MEDICATED WITH 6 ADDITIONAL UNITS OF INSULIN. PT VOICES NO NEEDS OR COMPLAINTS AT THIS TIME. ICE WATER PROVIDED. CALL LIGHT IN REACH,CONTINUE TO MONITOR.
--- NOTE | 2020-04-16 23:21 | NUR ---
PT RESTING IN BED IN PRONE POSITION, NO SIGNS OF DISTRESS NOTED, RESP EVEN AND UNLABORED. PT VOICES NO NEEDS OR COMPLAINTS AT THIS TIME, ZOSYN HUNG, CALL LIGHT IN REACH,CONTINUE TO MONITOR.
[2020-04-17] VITALS (9 sets, daily range): BP systolic 108–137; BP diastolic 69–85
[2020-04-17 06:09] LABS: HEMATOCRIT 40.4 % (39.0-50.0); HEMOGLOBIN 14.5 g/dl (14.0-18.0); MEAN CELL VOLUME 84.2 fL CALC (80.0-100.0); MEAN CORPUSCULAR HGB 30.2 pG CALC (26.0-32.0); MEAN CORPUSCULAR HGB CONC 35.9 g/dL CAL (32.0-36.0); RED BLOOD COUNT 4.8 mill/uL (4.70-6.10); RED CELL DISTRI WIDTH 11.2 % (11.5-15.5)
[2020-04-17 06:26] LABS: ALKALINE PHOSPHATASE 98 u/l (38-126); ANION GAP 10 (6-22 (CALC)); BILIRUBIN, TOTAL 1.2 mg/dL (0.0-1.4); BUN 20 mg/dL (9-20); BUN/CREATININE RATIO 40 (12-20 (CALC)); CARBON DIOXIDE 23 mmol/l (22-30); CHLORIDE 103 mmol/l (95-108); CREATININE 0.5 mg/dL (0.7-1.3); GFR > 60 ML/MIN (>=60 (CALC)); GFR FOR AFR.AMER. > 60 ML/MIN (>=60 (CALC)); POTASSIUM 4.3 mmol/l (3.5-5.1); SGOT/AST 32 u/l (17-59); SODIUM 131 mmol/l (137-146); TOTAL PROTEIN 6.3 g/dL (6.3-8.2)
--- NOTE | 2020-04-17 06:45 | NUR ---
RECIEVED REPORT FROM DEMETRA SAINI. ASSUMED PT CARE.
--- NOTE | 2020-04-17 07:30 | NUR ---
DIETARY ON UNIT, BREAKFAST TRAY SET UP.
--- NOTE | 2020-04-17 08:00 | NUR ---
PT ALERT SITTING UP IN BED, A&OX3, ABLE TO MAKE NEEDS KNOWN. SR/ST ON TELEMETRY, HR 72. RESPIRATION EVEN/SHALLOW, SA02@94% ON 10LPM/HF/NC, LS DIMINISHED THROUGHOUT. PT CONTINUES WITH MOIST COUGH, PRODUCING HARLEY THICK MUCOUS. URINAL AT BEDSIDE. PT DENIES CP OR DISTRESS AT THIS TIME. ACCUCHECK 235, WITH S/S COVERAGE ORDERED. CALL LIGHT IN REACH. WILL MONITOR.
--- NOTE | 2020-04-17 09:00 | NUR ---
DR. CAST AT [facility] FOR ASSESSMENT AND TO DISCUSS PLAN OF CARE. NEW ORDERS RECIEVED.
--- NOTE | 2020-04-17 10:32 | NUR ---
PT REMAINS IN SUPINE WITH HOB UP, WATCHING VIDEOS AND TALKING ON PERSONAL CELL PHONE. REMAINS AFEBRILE. CALL LIGHT IN REACH. WILL MONITOR.
--- NOTE | 2020-04-17 12:20 | NUR ---
PT SITTING UP IN BED, EATING LUNCH FAMILY BROUGHT IN FOR HIM AND TALKING ON PERSONAL CELL PHONE. CALL LIGHT IN REACH. WILL MONITOR.
--- NOTE | 2020-04-17 14:00 | NUR ---
PT RESTING IN BED, LOWERED O2 TO 8LPM HF/NC. PT TOLERATING WELL.
--- NOTE | 2020-04-17 16:00 | NUR ---
PT REMAINS ON 8LPM/HF/NC. RESPIRATIONS EVEN/UNLABORED, SA02@95%
--- NOTE | 2020-04-17 18:00 | NUR ---
DECREASED 02 TO 5LPM HF/NC. PT TOLERATING WELL. SA02@90% WILL MONITOR.
--- NOTE | 2020-04-17 18:45 | NUR ---
REPORT RECEIVED FROM HERNAN LINTON. CARE ASSUMED
--- NOTE | 2020-04-17 19:30 | NUR ---
PT RESTING IN BED IN [place]IGH [place]. PT IS ALERT AND ORIENTED X3. SHIFT ASSESSMENT COMPLETED AT THIS TIME. IV PATENT X1. CALL LIGHT IN REACH. WILL CONTINUE TO MONITOR.
--- NOTE | 2020-04-17 20:45 | NUR ---
ACCU CHECK 425. DR NIEVES NOTIFIED NEW ORDERS RECEIVED.
--- NOTE | 2020-04-17 21:15 | NUR ---
PT EDUCATED ON LONG ACTING INSULIN BY Kym CHOI RN. PT VERBALIZED UNDERSTANDING.
--- NOTE | 2020-04-17 22:00 | NUR ---
PT RESTING IN BED PRONE POSITION. O2 ON 3L NC. O2 SATS 96%. RESP ARE EVEN AND UNLABORED. NO DISTRESS NOTED. CALL LIGHT IN REACH. WILL CONTINUE TO MONITOR.
--- NOTE | 2020-04-17 23:58 | NUR ---
PT RESTING IN BED IN PRONE POSITION. RESP ARE EVEN AND UNALBROED. VSS ON MONITOR. O2 DECREASED TO 2L NC. O2 SATS REMAINS >94%. BS CHECKED DUE TO STARTING ON NEW LONG ACTING INSULIN. BS 267. CALL LIGHT IN REACH. WILL CONTINUE TO MONITOR.
[2020-04-18] VITALS (13 sets, daily range): BP systolic 102–151; BP diastolic 62–89
--- NOTE | 2020-04-18 02:02 | NUR ---
PT RESTING IN BED PRONE. RESP ARE EVEN AND UNLABROED. NO DISTRESS NTOED. CALL LGIHT IN REACH. WILL CONTINEU TO MONITOR
--- NOTE | 2020-04-18 04:03 | NUR ---
PT RESTING IN BED IN PRONE POSITION. RESP ARE EVEN AND UNLABORED. NO DISTRESS NOTED. VSS ON MONITOR. CALL LIGHT IN REACH. WILL CONTINUE OT MONITOR
--- NOTE | 2020-04-18 05:45 | NUR ---
IV TO LAC DC'D WITH CATH TIP INTACT. #22 TO RAC STARTED X1 ATTEMPT. IV INFUSING. PT TOLERATED WELL.
--- NOTE | 2020-04-18 06:45 | NUR ---
RECIEVED REPORT FROM ROYER BORREGO. ASSUMED PT CARE.
--- NOTE | 2020-04-18 07:45 | NUR ---
PT RESTING IN BED, PRONE POSITION. SA02@990% ON 2LPM/NC. INTERMITENT COUGH. SOB WITH EXERTION. ASSESSMENT COMPLETED. NO DISTRESS NOTED AT THIS TIME. AFEBRILE. CALL LIGHT IN REACH. WILL MONITOR.
[2020-04-18 08:04] LABS: HEMATOCRIT 44.1 % (39.0-50.0); HEMOGLOBIN 15.8 g/dl (14.0-18.0); IMMATURE GRANULOCYTES 1.1 % (0.0-5.0); MEAN CELL VOLUME 84.5 fL CALC (80.0-100.0); MEAN CORPUSCULAR HGB 30.3 pG CALC (26.0-32.0); MEAN CORPUSCULAR HGB CONC 35.8 g/dL CAL (32.0-36.0); NEUT# 5.52 thou/uL (1.82-7.42); RED BLOOD COUNT 5.22 mill/uL (4.70-6.10); RED CELL DISTRI WIDTH 11.4 % (11.5-15.5)
--- NOTE | 2020-04-18 09:00 | NUR ---
DR. CAST AT BEDSIDE FOR ASSESSMENT AND TO DISCUSS PLAN OF CARE.
[2020-04-18 09:09] LABS: ALBUMIN 3.3 g/dL (3.2-5.0); ALKALINE PHOSPHATASE 117 u/l (38-126); BILIRUBIN, TOTAL 1.2 mg/dL (0.0-1.4); BUN 19 mg/dL (9-20); BUN/CREATININE RATIO 28 (12-20 (CALC)); C-REACTIVE PROTEIN 2.1 mg/dL (0-0.9); CARBON DIOXIDE 27 mmol/l (22-30); CREATININE 0.7 mg/dL (0.7-1.3); GFR > 60 ML/MIN (>=60 (CALC)); GFR FOR AFR.AMER. > 60 ML/MIN (>=60 (CALC)); POTASSIUM 3.9 mmol/l (3.5-5.1); SGOT/AST 34 u/l (17-59); SODIUM 133 mmol/l (137-146); TOTAL PROTEIN 6.4 g/dL (6.3-8.2)
[2020-04-18 09:33] LABS: ANION GAP 8 (6-22 (CALC)); CHLORIDE 102 mmol/l (95-108)
--- NOTE | 2020-04-18 10:30 | NUR ---
PT RESTING IN BED, NO DISTRESS NOTED AT THIS TIME. CALL LIGHT IN REACH. WILL MONITOR.
--- NOTE | 2020-04-18 12:00 | NUR ---
PT RESTING IN BED, HOB UP, TALKING ON PERSONAL CELL PHONE. RESPIRATIONS EVEN/UNLABORED. SA02@94% ON 2LPM/NC. CALL LIGHT IN REACH. WILL MONITOR.
--- NOTE | 2020-04-18 14:00 | NUR ---
PT ASSISTED WITH COMPLETE BATH, FULL LINEN CHANGE , PT UP TO RECLINER, TOLERATED WELL. SA02@91% 2LPM/NC. CALL LIGHT IN REACH. WILL MONITOR.
--- NOTE | 2020-04-18 15:56 | NUR ---
PT REMAINS SITTING IN RECLINER, SA02@94%. NO DISTRESS NOTED AT THIS TIME. CALL LIGHT IN REACH. WILL MONITOR.
--- NOTE | 2020-04-18 19:45 | NUR ---
SITTING UP IN RECLINER WITH LEGS ELEVATED. RESP NON-LABORED. BREATH SOUND SLIGHTLY DIMINISHED ESSENTIALLY CLEAR. O2 ON AT 2 L NC O2 SAT 92-94% WILL CONTINUE TO MONITOR CLOSELY. SALINE LOCK IN RAC, SITE BENIGN. FILM NUMBERER SHOWS SR. SHIFT ASSESSMENT COMPLETED. DISCUSSED PLAN OF CARE. DENIES NEEDS AT THIS TIME. CALL RAMIREZ IN REACH.
--- NOTE | 2020-04-18 22:00 | NUR ---
PATIENT RETURNED TO BED FOR THE NIGHT. VSS. O2 SAT 89-91% INCREASED O2 TO 4 L NC.
[2020-04-19] VITALS (9 sets, daily range): BP systolic 104–131; BP diastolic 65–88
--- NOTE | 2020-04-19 00:05 | NUR ---
RESTING WITH EYS CLOSED. RESP NON-LABORED. SR ON MONITOR.
--- NOTE | 2020-04-19 02:05 | NUR ---
RESTING WITH EYES CLOSED. RESP NON-LABORED. MONITOR SHOWS SR. O2 SAT 93%
--- NOTE | 2020-04-19 04:00 | NUR ---
NO CHANGES TO REPORT. VSS. SR ON MONITOR.
--- NOTE | 2020-04-19 06:09 | NUR ---
SLEPT WELL. O2 SAT THIS MORNING 90% INCREASED TO 6 L NC. SALINE LOCK IN RAC FLUSHED AND PATENT.
--- NOTE | 2020-04-19 06:45 | NUR ---
REPORT RECEIVED FROM ANGELLA LINTON. CARE ASSUMED.
--- NOTE | 2020-04-19 07:20 | NUR ---
PT RESTING IN BED AWAKE. PT IS ALERT AND ORIENTED X3. SHIFT ASSESSMENT COMPLETED AT THIS TIME. IV PATENT X1. PT ASSISTED UP TO CHAIR AT THIS TIME. CALLLGITH IN REACH. WILL CONTINUE TO MONITOR.
--- NOTE | 2020-04-19 08:30 | NUR ---
PT O2 SATS 68% ON MONITOR. PT ASSISTED BACK TO BED. PT STATES THAT HE IS SHORT OF BREATH. PT PLACED PRONE IN BED. O2 SATS SLOWLY CAME BACK UP TO 92%. RT PAGED.
--- NOTE | 2020-04-19 08:43 | NUR ---
RT AT BEDSIDE FOR ASSESSMENT AT THIS TIME
--- NOTE | 2020-04-19 10:17 | NUR ---
PT RESTING IN BED IN PRONE POSITION. RESP ARE EVEN AND UNLABORED. NO DISTRESS NOTED. CALL LIGHT IN REACH. WILL CONTINUE TO MONITOR
--- NOTE | 2020-04-19 10:30 | NUR ---
DR CAST AT BEDSIDE AT THIS TIME
--- NOTE | 2020-04-19 12:00 | NUR ---
PT SITTING UP ON SIDE OF BED EATING LUNCH. RESP AR EVEN AND UNLABORED. NO DISTRESS NOTED. CALL LIGHT IN REACH. WILL CONTINUE TO MONITOR.
--- NOTE | 2020-04-19 14:00 | NUR ---
PT SITTING UP IN BED TALKING ON PHONE AND WATCHING TV. RESP ARE EVEN AND UNLABROED. NO DISTRESS NOTED. PT REPORTS FEELING MUCH BETTER THAN EARLIER THIS MORNING. O2 NC DECREASED TO 4L NASAL CANNULA. O2 SATS MAINTAIN AT 96%. CALL LIGHT IN REACH. WILL CONTINUE TO MONITOR.
--- NOTE | 2020-04-19 16:00 | NUR ---
PT RESTING IN BED IN SEMI HIGH FOWLERS WATCHING TV. RESP ARE EVEN AND UNLABROED. NO DISTRESS NOTED. CALL LIGHT IN REACH. WILL CONTINUE TO MONITOR.
--- NOTE | 2020-04-19 18:17 | NUR ---
PT SET UP FOR PM MEAL. PT SITTING UP IN SEMI HIGH FOWLERS POSITION. CALL LIGHT IN REACH. WILL CONTINUE TOMONITOR.
--- NOTE | 2020-04-19 19:30 | NUR ---
RESTING IN BED. NO COMPLAINT OF ANY PAIN, DISCOMFORTS OR SOB. RESP NON-LABORED AT REST. BREATH SOUNDS CLEAR ALTHOUGH DIMINISHED THROUGHOUT. O2 ON AT 3 L NC, O2 SAT 91% INCREASED O2 TO 4 L NC, O2 SAT 94% SALINE LOCK IN RAC, SITE BENIGN. SWISS TYPE SCREW MACHINE OPERATOR SHOW SR. SHIFT ASSESSMENT COMPLETED. DISCUSSED PLAN OF CARE. EMOTIONAL SUPPORT AND REASSURANCE PROVIDED REGARDING RECOVERY. DENIES NEEDS AT THIS TIME. CALL RAMIREZ IN REACH.
--- NOTE | 2020-04-19 21:30 | NUR ---
HS ACCU CHECK 427 COVERED PER SS POROTOCOL AND GIVEN PM SCHEDULED DOSE OF LEVEMIR. PATIENT HAD JUST EATEN FOOD BROUGHT IN FROM FAMILY. DISCUSSED NEED FOR DIET CHANGES WITH BEING A DIABETIC. PRINTED UP EDUCATION MATERIAL ON DIABETES AND DIABETIC DIET IN [place] AND PROVIDED TO PATIENT.
--- NOTE | 2020-04-19 22:00 | NUR ---
WATCHING TV. NO C/O VOICED.
[2020-04-20] VITALS (12 sets, daily range): BP systolic 94–132; BP diastolic 49–83
--- NOTE | 2020-04-20 | NUR ---
RESTING WITH EYES CLOSED. RESP NON-LABORED AT REST. O2 SAT 98% CURRENTLY ON O2 4 L NC. SR ON MONITOR. SALINE LOCK IN RAC FLUSHED AND PATENT.
--- NOTE | 2020-04-20 02:05 | NUR ---
SLEEPING. VSS. O2 SAT 97%
--- NOTE | 2020-04-20 04:00 | NUR ---
SLEEPS SOUNDLY. MAINTAINING O2 SATS UPPER 90'S ON 4 L NC.SR ON MONITOR.
--- NOTE | 2020-04-20 05:20 | NUR ---
AWAKENS TO NAME. BLOOD DRAWM FOR AM LABS VIA PERIPHERAL STICK.
[2020-04-20 06:09] LABS: HEMATOCRIT 42.2 % (39.0-50.0); HEMOGLOBIN 14.7 g/dl (14.0-18.0); IMMATURE GRANULOCYTES 1.5 % (0.0-5.0); MEAN CELL VOLUME 84.6 fL CALC (80.0-100.0); MEAN CORPUSCULAR HGB 29.5 pG CALC (26.0-32.0); MEAN CORPUSCULAR HGB CONC 34.8 g/dL CAL (32.0-36.0); NEUT# 6.42 thou/uL (1.82-7.42); RED BLOOD COUNT 4.99 mill/uL (4.70-6.10); RED CELL DISTRI WIDTH 11.5 % (11.5-15.5)
[2020-04-20 06:28] LABS: ALKALINE PHOSPHATASE 112 u/l (38-126); ANION GAP 8 (6-22 (CALC)); BILIRUBIN, TOTAL 1.2 mg/dL (0.0-1.4); BUN 17 mg/dL (9-20); BUN/CREATININE RATIO 25 (12-20 (CALC)); C-REACTIVE PROTEIN 1.4 mg/dL (0-0.9); CARBON DIOXIDE 29 mmol/l (22-30); CHLORIDE 100 mmol/l (95-108); CREATININE 0.7 mg/dL (0.7-1.3); GFR > 60 ML/MIN (>=60 (CALC)); GFR FOR AFR.AMER. > 60 ML/MIN (>=60 (CALC)); POTASSIUM 3.8 mmol/l (3.5-5.1); SGOT/AST 27 u/l (17-59); SODIUM 133 mmol/l (137-146); TOTAL PROTEIN 5.7 g/dL (6.3-8.2)
--- NOTE | 2020-04-20 06:45 | NUR ---
REPORT RECEIVED FROM ANGELLA LINTON. CARE ASSUMED
--- NOTE | 2020-04-20 07:40 | NUR ---
PT RESTING IN BED AWAKE. PT IS ALERT AND ORIENTED X3. SHIFT ASSESSMENT COMPLETED AT THIS TIME. IV PATENT X1. O2 DECREASED TO 3L NC. O2 SATS MAINTAINING AT 92%OR> CALL LIGHT IN REACH. WILL CONTINUE TO MONITOR.
--- NOTE | 2020-04-20 09:51 | NUR ---
DR CAST AT BEDSIDE AT THIS TIME
--- NOTE | 2020-04-20 09:58 | NUR ---
WHILE DR CAST AT BEDSIDE PT DESATS TO 83%. PT TURNED TO PRONE AND O2 INCREASED TO 5L NC.
--- NOTE | 2020-04-20 12:00 | NUR ---
PT SET UP FOR NOON MEAL. O2 INCREASED FOR PT TO BE ABLE TO SIT UP WITH OUT DISTRESS. RESP ARE EVEN AND UNLABORED. CALL LIGHT IN REACH. VSS ON MONITOR. WILL CONTINUE TO MONITOR.
--- NOTE | 2020-04-20 13:12 | NUR ---
INFECTIOUS DISEASE CONSULT PLACED.
--- NOTE | 2020-04-20 14:00 | NUR ---
PT RESTING IN BED AWAKE. VSS ON MONITOR. RESP ARE EVEN AND UNALBROED. NO DISTRESS NOTED. CALL LIGHT IN REACH. WILL CONTINUE TO MONITOR.
--- NOTE | 2020-04-20 15:57 | NUR ---
PT RESTING IN BED AWAKE. RESP ARE EVEN AND UNLABORED. VSS ON MONITOR. CALL LIGHT IN REACH. WILL CONTINUE TOMONITOR.
--- NOTE | 2020-04-20 17:56 | NUR ---
PT SET UP FOR PM MEAL AT THIS TIME. RESP ARE EVEN AND UNLABORED. NO DISTRESS NOTED. CALL LIGHT IN REACH. WILL CONTINUE TO MONITOR.
--- NOTE | 2020-04-20 20:30 | NUR ---
PATIENT RESTING IN BED. RESP NON-LABORED AT REST. O2 ON AT 3 L NC. O2 SAT 98% OCC COUGH. BREATH SOUNDS CLEAR, SLT DIMINISHED THROUGHOUT. SHIFT ASSESSMENT COMPLETED. SALINE LOCK INTACT IN RAC, DSG CDI, SITE BENIGN. HOUSEKEEPER MANAGER HSOW SR. DISCUSSED PLAN OF CARE. PATIENT FAMILY BROUGHT A DINNER PATIENT REQUESTS THAT IT BE PUT IN FRIDGE HE HAS ALREADY EATEN HOSPITAL TRAY.
--- NOTE | 2020-04-20 21:00 | NUR ---
ACCSANDI 363. SPOKE WITH PATIENT ABOUT CONTINUED HIGH BS. DISCUSSED MONITORING OF BS AND INSULIN COVERAGE WELL LONG ACTING INSULIN LEVEMIR. REINFORCED NEED FOR DIET CHANGES AND IMPORTANCE OF FAMILY MEMBER WHO DOES [employer] SHOPPING AND COOKING BECOMING EDUCATED ON DIABETES. PATIENT VERBALIZES UNBDERSTANDING. PATIENT WILL NEED CONTIIUED EDUCATION AND FOLLOW UP/REINFORCEMENT OF TEACHING.
[2020-04-21] VITALS (12 sets, daily range): BP systolic 91–137; BP diastolic 38–92
--- NOTE | 2020-04-21 | NUR ---
SLEEPING, AWAKENS TO NAME. SALINE LOCK IN RAC FLUSHED AND PATENT, SLIGHTLY POSTIONAL. VSS. SR ON MONITOR.
--- NOTE | 2020-04-21 02:00 | NUR ---
NO CHANGES TO REPORT. MAINTAINING O2 SAT >93% ON O2 3 L NC.
--- NOTE | 2020-04-21 04:00 | NUR ---
CONTINUES TO MAINTAIN O2 SATS >94% RESP NON-LABORED AT REST. SR ON MONITOR.
--- NOTE | 2020-04-21 06:00 | NUR ---
SALINE IN RAC FLUSHED AND PATENT. PATIENT HAS RESTED SUPINE MOST OF THE NIGHT AND MAINTAINED O2 SATS OF >94% ON 3 L NC. MONITOR SR.
--- NOTE | 2020-04-21 06:45 | NUR ---
REPORT RECEIVED FROM ANGELLA LINTON. CARE ASSUMED
--- NOTE | 2020-04-21 07:10 | NUR ---
PT TEXTILE CONSERVATOR LIGHT STATING HES SHORT OF BREATH. O2 SAT ON MONITOR 85-88%. NURSING INTO ROOM. O2 SATS 75%. O2 HI SWEETIE TO 10L. PT PRONED. NO CHANGE NOTED IN O2 SATS. O2 INCREASED TO 15L NC. RT CALLED TO BEDSIDE. DR CAST CALLED FOR UPDATE. RT PLACED PT ON NRB. DR WADSWORTH ORDERED STAT ABG. AND CXR WHEN PT RECOVERS. RT AT BEDSIDE FOR ABG. SHIFT ASSESSMENT COMPLETED IV PATENT X1. CALL LIGHT IN REACH. WILL CONTINUE TOMONITOR
--- NOTE | 2020-04-21 08:00 | NUR ---
RADIOLOGY AT BEDSIDE FOR PORTABLE CXR
--- NOTE | 2020-04-21 08:09 | NUR ---
PT DESATTED TO 83%.THIS NURSE AND RT AT BEDSIDE. PT PRONE ENCOURAGED TO TAKE SLOW DEEP BREATHS.
--- NOTE | 2020-04-21 10:15 | NUR ---
TOWNSEND PLACED USING STERILE TECHNIQUE IMMEADAITE RETURN OF URINE NOTED. PT TOLERATED WELL. CALL LIGHT IN REACH. WILL CONTINUE TO MONITOR
--- NOTE | 2020-04-21 11:11 | NUR ---
RT AT BEDSIDE FOR REPEAT ABG
--- NOTE | 2020-04-21 11:17 | NUR ---
RACHEL DONNELLY CALLED FOR UPDATE. UPDATE PROVIDED.
--- NOTE | 2020-04-21 11:58 | NUR ---
PT SWITCHED TO HI SWEETIE NASAL CANNULA. AND SET UP FOR NOON MEAL. CALL LIGHT IN REACH. WILL CONTINUE TO MONITOR.
--- NOTE | 2020-04-21 13:00 | NUR ---
O2 DECREASED TO 5L NC. PT TOLERATING WELL. CALL LIGHT IN REACH. WILL CONTINUE TO MONITOR.
--- NOTE | 2020-04-21 14:01 | NUR ---
PT RESTING IN BED AWAKE RESP ARE EVEN AND UNALBORED. NO DISTRESS NOTED. CALL LIGHT IN REACH. WILL CONTINUE TO MONITOR
--- NOTE | 2020-04-21 16:04 | NUR ---
O2 DECREASED TO 2L NC. PT O2 SATS 93%>. PT RESTING HIGH FOWLERS IN BECD. RESP ARE EVEN AND UNLABORED. NO DISTRESS NOTED. CALL LIGHT IN REACH. WILL CONTINUE TO MONITOR.
--- NOTE | 2020-04-21 17:50 | NUR ---
PT SET UP FOR PM MEAL AT THIS TIME. PT SITTING IN HIGH FOWLERS POSITION. RESP ARE EVEN AND UNLABORED. NO DISTRESS NOTED. PT ON O2 2L NC. CALL LIGHT IN REACH. WILL CONTINUE TO MONITOR.
--- NOTE | 2020-04-21 20:00 | NUR ---
PT AWAKE AND ALERT. PT RELATED HIS BREATHING HAS IMPROVED. PT ON 02 2L VIA NC. NO NEEDS AT THIS TIME. CALL RAMIREZ IN REACH.
--- NOTE | 2020-04-21 22:00 | NUR ---
PT TALKING ON PHONE. NO RESP DISTRESS NOTED. NO NEEDS AT THIS TIME. CALL RAMIREZ IN REACH.
[2020-04-22] VITALS (10 sets, daily range): BP systolic 96–131; BP diastolic 68–98
--- NOTE | 2020-04-22 | NUR ---
PT WITH EYES CLOSED, OPENED WHEN RN ENTERED ROOM. NO RESP COMPLAINTS. CALL RAMIREZ IN REACH.
--- NOTE | 2020-04-22 02:00 | NUR ---
PT WITH EYES CLOSED, NO RESP DISTRESS NOTED. SA02 95% ON 2L. CALL RAMIREZ IN REACH.
--- NOTE | 2020-04-22 04:17 | NUR ---
NO RESP DISTRESS NOTED. SA02 95% ON 2L CALL RAMIREZ IN REACH.
[2020-04-22 06:14] LABS: HEMOGLOBIN 16.3 g/dl (14.0-18.0); IMMATURE GRANULOCYTES 0.9 % (0.0-5.0); MEAN CELL VOLUME 85.3 fL CALC (80.0-100.0); MEAN CORPUSCULAR HGB 29.6 pG CALC (26.0-32.0); MEAN CORPUSCULAR HGB CONC 34.7 g/dL CAL (32.0-36.0); NEUT# 7.02 thou/uL (1.82-7.42); RED BLOOD COUNT 5.51 mill/uL (4.70-6.10); RED CELL DISTRI WIDTH 11.9 % (11.5-15.5)
[2020-04-22 06:22] LABS: ALBUMIN 3.3 g/dL (3.2-5.0); ALKALINE PHOSPHATASE 116 u/l (38-126); ANION GAP 7 (6-22 (CALC)); BUN 22 mg/dL (9-20); BUN/CREATININE RATIO 29 (12-20 (CALC)); C-REACTIVE PROTEIN 2.1 mg/dL (0-0.9); CARBON DIOXIDE 29 mmol/l (22-30); CHLORIDE 99 mmol/l (95-108); CREATININE 0.8 mg/dL (0.7-1.3); GFR > 60 ML/MIN (>=60 (CALC)); GFR FOR AFR.AMER. > 60 ML/MIN (>=60 (CALC)); SGOT/AST 36 u/l (17-59); SODIUM 131 mmol/l (137-146); TOTAL PROTEIN 6.3 g/dL (6.3-8.2)
[2020-04-22 06:23] LABS: BILIRUBIN, TOTAL 1.7 mg/dL (0.0-1.4)
--- NOTE | 2020-04-22 06:45 | NUR ---
RECIEVED REPORT FROM ROYER ATKINS. ASSUMED PT CARE.
--- NOTE | 2020-04-22 07:45 | NUR ---
PT A&0X3 ,ABLE TO MAKE NEEDS KNOWN. SR ON TELEMETRY, HR 82. PT DENIES CP, SOB OR DISTRESS AT THIS TIME. RESPIRATIONS EVEN/UNLABORED, LS CLEAR THROUGHOUT, SA02@ 94% on 2lpm/nc. ABDOMEN SOFT,NON-TENDER, LBM 7-11-20. TOWNSEND REMAINS PATENT, DRAINING TO BSD VIA GRAVITY. CALL LIGHT IN REACH. WILL MONITOR.
--- NOTE | 2020-04-22 09:45 | NUR ---
DR. NIEVES AT [facility] FOR ASSESSMENT AND TO DISCUSS PLAN OF CARE, NEW ORDERS RECIEVED. CALL LIGHT IN REACH. WILL MONITOR
--- NOTE | 2020-04-22 11:30 | NUR ---
[facility] NOTIF[facility], NEW ORDERS RECIEVED. STAT GLUCOSE OBTAIN AT BEDSIDE. PT TOLERATED BLOOD DRAW. WILL MONITOR.
--- NOTE | 2020-04-22 12:16 | NUR ---
PT RESTING IN BED TALKING ON CELLPHONE. NO DISTRESS NOTED AT THIS TIME.
--- NOTE | 2020-04-22 14:00 | NUR ---
PT RESTING IN PRONE POSITION. SA02@96%.
--- NOTE | 2020-04-22 16:00 | NUR ---
PT RESTING IN PRONE , EYES CLOSED. NO DISTRESS NOTED AT THIS TIME. CALL LIGHT IN REACH. WILL MONITOR
--- NOTE | 2020-04-22 18:45 | NUR ---
RECEIVED REPORT FROM HERNAN LINTON.
--- NOTE | 2020-04-22 19:00 | NUR ---
PT AWAKE AND ALERT LYING IN PRONE POSITION. PT DENIED RESP DIFF. CALL RAMIREZ IN REACH.
--- NOTE | 2020-04-22 20:00 | NUR ---
PT AWAKE AND ALERT, NO RESP DIFF AT THIS TIME. ENCOURAGED PT TO REMAIN IN PRONE POSITION. NO NEEDS AT THIS TIME. CALL RAMIREZ IN REACH.
--- NOTE | 2020-04-22 22:00 | NUR ---
PT PRONE WATCHING CELL PHONE. NO RESP DISTRESS NOTED. CALL RAMIREZ IN REACH.
[2020-04-23] VITALS (12 sets, daily range): BP systolic 102–151; BP diastolic 51–86
--- NOTE | 2020-04-23 02:00 | NUR ---
PT SLEEPING IN PRONE POSITION. NO RESP DISTRESS NOTED. SA02 96% CALL RAMIREZ IN REACH.
--- NOTE | 2020-04-23 04:00 | NUR ---
PT IN PRONE POSITION. NO RESP DISTRESS NOTED. CALL RAMIREZ IN REACH.
[2020-04-23 05:53] LABS: HEMATOCRIT 43.1 % (39.0-50.0); HEMOGLOBIN 15.4 g/dl (14.0-18.0); IMMATURE GRANULOCYTES 1.1 % (0.0-5.0); MEAN CELL VOLUME 84.3 fL CALC (80.0-100.0); MEAN CORPUSCULAR HGB 30.1 pG CALC (26.0-32.0); MEAN CORPUSCULAR HGB CONC 35.7 g/dL CAL (32.0-36.0); NEUT# 7.56 thou/uL (1.82-7.42); RED BLOOD COUNT 5.11 mill/uL (4.70-6.10); RED CELL DISTRI WIDTH 11.8 % (11.5-15.5)
--- NOTE | 2020-04-23 06:00 | NUR ---
PT AWAKE AND ALERT. NO NEEDS AT THIS TIME. CALL RAMIREZ IN REACH.
[2020-04-23 06:06] LABS: ANION GAP 9 (6-22 (CALC)); BUN 18 mg/dL (9-20); BUN/CREATININE RATIO 29 (12-20 (CALC)); CARBON DIOXIDE 25 mmol/l (22-30); CHLORIDE 104 mmol/l (95-108); CREATININE 0.6 mg/dL (0.7-1.3); GFR > 60 ML/MIN (>=60 (CALC)); GFR FOR AFR.AMER. > 60 ML/MIN (>=60 (CALC)); POTASSIUM 3.8 mmol/l (3.5-5.1); SODIUM 133 mmol/l (137-146)
--- NOTE | 2020-04-23 06:55 | NUR ---
RECIEVED REPORT FROM ROYER ATKINS. ASSUMED PT CARE.
--- NOTE | 2020-04-23 07:30 | NUR ---
PT A&0X4, ABLE TO MAKE NEEDS KNOWN, PT SR ON TELEMETRY, SOB WITH EXERTION, SA02@83%, PT REPOSITIONED TO PRONE POSITION, O2 INCREASED TO 4LPM/NC, SA02 INCREASED TO 91%. DR. CAST NOTIFIED, NEW ORDERS RECIEVED. CALL LIGHT IN REACH.
--- NOTE | 2020-04-23 09:00 | NUR ---
DR. CAST AT BEDSIDE FOR ASSESMNET AND TO DISCUSS PLAN OF CARE, NEW ORDERS RECIEVED.
--- NOTE | 2020-04-23 10:08 | NUR ---
PT RESTING IN PRONE POSITION, SA02@94% ON 4LPM/NC. CALL LIGHT IN REACH. WILL MONITOR.
--- NOTE | 2020-04-23 12:08 | NUR ---
DIETARY ON UNIT, LUNCH TRAY SET UP.
--- NOTE | 2020-04-23 14:08 | NUR ---
PT RESTING IN PRONE, [id number]% ON 4LPM/NC CALL LIGHT IN REACH. WILL MONITOR.
--- NOTE | 2020-04-23 16:00 | NUR ---
PT RESTING IN PRONE, SA02@98% . PT DENIES CP, SOB OR DISTRESS AT THIS TIME. CALL LIGHT IN REACH. WILL MONITOR.
--- NOTE | 2020-04-23 18:06 | NUR ---
PT SITTING UP IN BED, EATING DINNER. SA02@93%. NO DISTRESS NOTED. CALL LIGHT IN REACH. WILL MONITOR.
--- NOTE | 2020-04-23 20:00 | NUR ---
awake. denies acute distress. o2 cont @ 4 l/m per nc. cardiac rehabilitation specialist shows sinus tach hr 100. #20 rac saline lock. po fluids taken well. regalado cath in place. urine clear yellow. instructed about prone position. pt verbalized understanding. fall precautions cont.
--- NOTE | 2020-04-23 20:45 | NUR ---
up to bsc per self. desats to 84% (with o2) with exertion then recovers to 93% upon return to bed & in the prone position. denies resp distress.
--- NOTE | 2020-04-23 22:00 | NUR ---
eyes closed. lying in prone position. nad.
[2020-04-24] VITALS (13 sets, daily range): BP systolic 98–144; BP diastolic 51–97
--- NOTE | 2020-04-24 00:01 | NUR ---
eyes closed. nad. o2 cont per nc. monitor and storage bin tender shows sinus rhythm hr 76.
--- NOTE | 2020-04-24 02:00 | NUR ---
resting quietly. resps even & unlabored. nad. o2 cont.
--- NOTE | 2020-04-24 03:30 | NUR ---
blood drawn & sent to lab.
[2020-04-24 04:17] LABS: HEMATOCRIT 41.2 % (39.0-50.0); HEMOGLOBIN 14.7 g/dl (14.0-18.0); IMMATURE GRANULOCYTES 0.6 % (0.0-5.0); MEAN CELL VOLUME 83.6 fL CALC (80.0-100.0); MEAN CORPUSCULAR HGB 29.8 pG CALC (26.0-32.0); MEAN CORPUSCULAR HGB CONC 35.7 g/dL CAL (32.0-36.0); NEUT# 8.73 thou/uL (1.82-7.42); RED BLOOD COUNT 4.93 mill/uL (4.70-6.10); RED CELL DISTRI WIDTH 11.9 % (11.5-15.5)
[2020-04-24 04:36] LABS: ALBUMIN 3.3 g/dL (3.2-5.0); ALKALINE PHOSPHATASE 133 u/l (38-126); ANION GAP 10 (6-22 (CALC)); BILIRUBIN, TOTAL 1.3 mg/dL (0.0-1.4); BUN 23 mg/dL (9-20); BUN/CREATININE RATIO 37 (12-20 (CALC)); C-REACTIVE PROTEIN 2.1 mg/dL (0-0.9); CARBON DIOXIDE 26 mmol/l (22-30); CHLORIDE 100 mmol/l (95-108); CREATININE 0.6 mg/dL (0.7-1.3); GFR > 60 ML/MIN (>=60 (CALC)); GFR FOR AFR.AMER. > 60 ML/MIN (>=60 (CALC)); SGOT/AST 28 u/l (17-59); SODIUM 131 mmol/l (137-146); TOTAL PROTEIN 6.2 g/dL (6.3-8.2)
--- NOTE | 2020-04-24 06:00 | NUR ---
xray here. pcxr obtained.
--- NOTE | 2020-04-24 07:35 | NUR ---
pt awake in bed; no apparent distress noted; pt offers no complaints; assessment completed at this time; pt alert and oriented; denies pain; no n/v noted; resp even and unlabored; lungs diminished throughout; skin color wnl; o2 per nc; son with any/minimal exertion; desat to low 80s with any/minimal exertion; hr reg; strong pulses; no edema noted; sr on monitor; abd soft with bs present; no bm noted per technical writer and editor; regalado to gravity draining denzel urine; #22 flushed and patent to rac; no redness or edema noted at site; rash noted to lower abd and left back; plan of care/ am meds/ prone positioning explained; call light within reach; will continue to monitor
--- NOTE | 2020-04-24 07:53 | NUR ---
Dr Warner present at bedside to assess pt and discuss plan of care
--- NOTE | 2020-04-24 08:07 | NUR ---
awake in bed eating breakfast; no apparent distress noted; o2 per nc; iv intact; sr on monitor; call light within reach; will continue to monitor
--- NOTE | 2020-04-24 10:04 | NUR ---
awake in bed conversing on cell phone; no apparent distress noted; pt offers no complaints; iv intact; o2 per nc; regalado to gravity; sr on monitor; call light within reach;
--- NOTE | 2020-04-24 10:55 | NUR ---
staff at bedside; consult with Dr Davis in progress
--- NOTE | 2020-04-24 12:04 | NUR ---
pt awake in bed; no apperent distress noted; pt offers no complaints at this time; iv intact; o2 per nc; regalado to gravity; st on monitor; call light within reach; will continue to monitor
--- NOTE | 2020-04-24 14:00 | NUR ---
awake in bed; instructed to lay prone position; o2 per nc; regalado to gravity; iv intact; st on monitor; call light within reach; will continue to monitor
--- NOTE | 2020-04-24 16:15 | NUR ---
awake in bed; no apparent distress noted; pt offers no complaints; iv intact; st on monitor; o2 per nc; regalado to gravity; prone position continued; will continue to monitor
--- NOTE | 2020-04-24 18:20 | NUR ---
awake in bed; no apparent distress noted; pt offers no complaints; o2 per nc; iv intact; regalado to gravity; sr on monitor; call light within reach
--- NOTE | 2020-04-24 19:15 | NUR ---
insulin & administration technique retrieved from computor provided to pt in [place].
--- NOTE | 2020-04-24 19:15 | NUR ---
awake. denies resp distress. o2 cont per nc. panel monitor shows sinus rhythm hr 92. #20 rac saline lock. po fluids taken well. regalado cath in place. urine clear yellow. insulin administration teaching began. fall & air/contact precautions cont.
--- NOTE | 2020-04-24 21:00 | NUR ---
levemir insulin drawn from bottle per this telegraphic typewriter installer(due to covid restrictions). pt administered own insulin with good technique. juan well. pt said "it's easy."
[2020-04-25] VITALS (7 sets, daily range): BP systolic 117–132; BP diastolic 68–82
--- NOTE | 2020-04-25 00:01 | NUR ---
eyes closed. no distress. o2 cont. regalado draining well.
--- NOTE | 2020-04-25 02:00 | NUR ---
eyes closed. resps even & unlabored. electronic device monitor shows sinus rhythm hr 68.
--- NOTE | 2020-04-25 04:00 | NUR ---
eyes closed. nad. monitoring tech shows sinus rhythm hr 70.
--- NOTE | 2020-04-25 06:00 | NUR ---
eyes closed. no resp diff. field care coordinator shows sinus rhythm hr 68.
--- NOTE | 2020-04-25 06:45 | NUR ---
RECIEVED REPORT FROM DEMETRA MAN. ASSUMED PT CARE.
--- NOTE | 2020-04-25 07:30 | NUR ---
DR. CAST AT [facility] FOR ASSESSMENT AND TO DISCUSS PLAN OF CARE. NEW ORDERS RECIEVED.
--- NOTE | 2020-04-25 07:45 | NUR ---
PT RESTING IN BED, SAO2@95% ON 4LPM/NC. A&OX3, ABLE TO MAKE NEEDS KNOWN. RESPIRATIONS EVEN/UNLABORED, LS CLEAR/DIMINSHED THROUGHOUT. PT CONTINUES WITH RASH TO L FLANK, ABDOMEN. TOWNSEND REMAINS PATENT, DRAINING TO BSD VIA GRAVITY. CALL LIGHT IN REACH. WILL MONITOR.
--- NOTE | 2020-04-25 09:30 | NUR ---
INDERJIT WITH PT AT BEDSIDE FOR THERAPY. PT DID NOT TOLERATE WELL. WILL MONITOR.
--- NOTE | 2020-04-25 11:04 | NUR ---
PT EDUCATION DONE WITH ACCUCHECKS AND INSULIN ADMINISTRATION. PT RETURNED DEMONSTRATION.
--- NOTE | 2020-04-25 12:00 | NUR ---
PT RESTING IN BED, FINISHED EATING LUNCH. PT ENCOURAGED TO PRONE POSITION, COMPLIED. CARY ROMERO, DRAING TO BSD VIA GRAVITY. CALL LIGHT IN REACH. WILL MONITOR.
--- NOTE | 2020-04-25 14:00 | NUR ---
PT RESTING WITH EYES CLOSED, NO DISTRESS NOTED.
--- NOTE | 2020-04-25 16:00 | NUR ---
DIETARY ON UNIT. DINNER TRAY SET UP. PT REPOSITIONED TO HIGH FOWLERS. TOLERATED WELL. CALL LIGHT IN REACH. WILL MONITOR.
--- NOTE | 2020-04-25 18:02 | NUR ---
PT RESTING IN PRONE, REMAINS ST ON TELEMTRY, HR 100. PT DENIES CP, SOB OR DISTRESS AT THIS TIME. SA02@98% 4LPM/NCPhillip TOWNSEND REMAINS PATENT, DRAINING TO BSD VIA GRAVITY. CALL LIGHT IN REACH. WILL MONITOR.
--- NOTE | 2020-04-25 19:00 | NUR ---
PT AWAKE AND ALERT, NO RESP DIFF NOTED. NO NEEDS AT THIS TIME. CALL RAMIREZ IN REACH.
--- NOTE | 2020-04-25 20:00 | NUR ---
PT IN PRONE POSITION, WATCHING CELL PHONE. PT WITH NO C/O RESP DIFF. SA02 96% CALL RAMIREZ IN REACH.
--- NOTE | 2020-04-25 21:00 | NUR ---
PT C/O TOWNSEND LEAKING AT [facility]. REQUESTED TO HAVE TOWNSEND REMOVED. REMOVED WITHOUT DIFF, URINAL PROVIDED.
[2020-04-26] VITALS (10 sets, daily range): BP systolic 112–125; BP diastolic 64–81
--- NOTE | 2020-04-26 | NUR ---
PT IN PRONE POSITION, NO RESP DISTRESS NOTED. NO NEEDS AT THIS TIME. CALL RAMIREZ IN REACH.
--- NOTE | 2020-04-26 04:00 | NUR ---
PT VOIDED AFTER TOWNSEND REMOVAL. DENIED LOWER ABD DISCOMFORT. PT HAD LARGE FORMED BM.
[2020-04-26 05:02] LABS: HEMATOCRIT 42.9 % (39.0-50.0); HEMOGLOBIN 15.1 g/dl (14.0-18.0); IMMATURE GRANULOCYTES 0.7 % (0.0-5.0); MEAN CELL VOLUME 85.1 fL CALC (80.0-100.0); MEAN CORPUSCULAR HGB CONC 35.2 g/dL CAL (32.0-36.0); NEUT# 7.56 thou/uL (1.82-7.42); RED BLOOD COUNT 5.04 mill/uL (4.70-6.10); RED CELL DISTRI WIDTH 12.1 % (11.5-15.5)
[2020-04-26 05:20] LABS: ANION GAP 10 (6-22 (CALC)); BUN 22 mg/dL (9-20); BUN/CREATININE RATIO 35 (12-20 (CALC)); CARBON DIOXIDE 28 mmol/l (22-30); CHLORIDE 99 mmol/l (95-108); CREATININE 0.6 mg/dL (0.7-1.3); GFR > 60 ML/MIN (>=60 (CALC)); GFR FOR AFR.AMER. > 60 ML/MIN (>=60 (CALC)); POTASSIUM 4.1 mmol/l (3.5-5.1); SODIUM 133 mmol/l (137-146)
--- NOTE | 2020-04-26 06:45 | NUR ---
RECIEVED REPORT FROM ROYER ATKINS. ASSUMED PT CARE.
--- NOTE | 2020-04-26 07:30 | NUR ---
PT RESTING IN BED, A&0X4, ABLE TO MAKE NEEDS KNOWN. SA02@97% ON 4LPM/NC. LS DIMINISHED THROUGHOUT. ABDOMEN SOFT/NON-TENDER BSX4 ACTIVE, LBM 7-16-20. URINAL AT BEDSIDE. CALL LIGHT IN REACH. WILL MONITOR.
--- NOTE | 2020-04-26 08:30 | NUR ---
DR. CAST AT BEDSIDE FOR ASSESSMENT AND TO DISCUSS PLAN OF CARE. WILL MONITOR.
--- NOTE | 2020-04-26 10:00 | NUR ---
PT RESTING IN BED, NO DISTRESS NOTED.
--- NOTE | 2020-04-26 12:00 | NUR ---
PT SITTING UP IN BED, EATING LUNCH. SA02@91% ON 4LPM. RESPIRATIONS EVEN AND UNLABORED. CALL LIGHT IN REACH. WILL MONITOR.
--- NOTE | 2020-04-26 14:00 | NUR ---
PT IN PRONE POSITION, NO DISTRESS NOTED.
--- NOTE | 2020-04-26 15:52 | NUR ---
PT Note Pt. was in prone position upon entering room. All procedures and PPE were followed to hospital guidlines. Pt agreed to participate in therapy. Pt. rolled from prone to supine, O2 dropped to 87, directed and pt. executed deep breathing techniques to bring O2 above 92%. Once achieved pt. began ther exercises in supine position consisting of hell slides, bridging and abduction of LE. During exercises O2 stats would fall below 91% and pt. would begin breathing exercises to bring levels to adequate number. tray table and call raygoza by patient side. Exiting room all precautions were followed.
--- NOTE | 2020-04-26 16:00 | NUR ---
PT AT BEDSIDE TO TREATMENT
--- NOTE | 2020-04-26 18:00 | NUR ---
PT SITTING IN BED WATCHING TV. SA02@ 96% ON 5LPM/NC. CALL LIGHT IN REACH. WILL MONITOR.
--- NOTE | 2020-04-26 19:15 | NUR ---
PT LYING ON BACK WATCHING TV. SA02 97% PT RELATED NO DIFF BREATHING. NO NEEDS AT THIS TIME. CALL RAMIREZ IN REACH.
--- NOTE | 2020-04-26 20:00 | NUR ---
PT AWAKE AND ALERT, NO RESP DIFF NOTED. RASH TO BACK IMPROVING. PT WITH NO NEEDS AT THIS TIME. CALL RAMIREZ IN PLACE.
--- NOTE | 2020-04-26 22:00 | NUR ---
PT PRONE IN BED TALKING ON PHONE. NO RESP DIFF NOTED. CALL RAMIREZ IN REACH.
[2020-04-27] VITALS (9 sets, daily range): BP systolic 106–138; BP diastolic 72–98
--- NOTE | 2020-04-27 | NUR ---
PT LYING PRONE, SA02 96%, NO DISTRESS NOTED. CALL RAMIREZ IN REACH.
--- NOTE | 2020-04-27 02:00 | NUR ---
PT PRONE, NO RESP DISTRESS. CALL RAMIREZ IN REACH.
--- NOTE | 2020-04-27 04:00 | NUR ---
PT AWAKE AND ALERT. NO C/O RESP DIFF. SA02 98% CALL RAMIREZ IN REACH.
[2020-04-27 05:46] LABS: HEMATOCRIT 40.4 % (39.0-50.0); HEMOGLOBIN 14.3 g/dl (14.0-18.0); IMMATURE GRANULOCYTES 0.3 % (0.0-5.0); MEAN CELL VOLUME 85.2 fL CALC (80.0-100.0); MEAN CORPUSCULAR HGB 30.2 pG CALC (26.0-32.0); MEAN CORPUSCULAR HGB CONC 35.4 g/dL CAL (32.0-36.0); NEUT# 6.78 thou/uL (1.82-7.42); RED BLOOD COUNT 4.74 mill/uL (4.70-6.10); RED CELL DISTRI WIDTH 12.3 % (11.5-15.5)
[2020-04-27 06:00] LABS: ANION GAP 10 (6-22 (CALC)); BUN 20 mg/dL (9-20); BUN/CREATININE RATIO 36 (12-20 (CALC)); CARBON DIOXIDE 26 mmol/l (22-30); CHLORIDE 100 mmol/l (95-108); CREATININE 0.6 mg/dL (0.7-1.3); GFR > 60 ML/MIN (>=60 (CALC)); GFR FOR AFR.AMER. > 60 ML/MIN (>=60 (CALC)); POTASSIUM 4.1 mmol/l (3.5-5.1); SODIUM 132 mmol/l (137-146)
--- NOTE | 2020-04-27 08:15 | NUR ---
REPORT RECEIVED ASSUMED CARE. PT RESTING IN BED, A&0X4, ABLE TO MAKE NEEDS KNOWN. SA02@95% ON 3LPM/NC. LS DIMINISHED THROUGHOUT. ABDOMEN SOFT/NON-TENDER BSX4 ACTIVE, LBM 7-16-20. URINAL AT BEDSIDE. CALL LIGHT IN REACH. WILL MONITOR.
--- NOTE | 2020-04-27 09:30 | NUR ---
PHYSICAL THERAPY WORKING WITH PT.
--- NOTE | 2020-04-27 12:55 | NUR ---
PT RESTING IN BED; NO DISTRESS NOTED. DENIES NEEDS/PAIN. ENCOURAGED TO CALL FOR NEEDS. CALL LIGHT WITHIN REACH. WILL CONTINUE TO MONITOR.
--- NOTE | 2020-04-27 15:52 | NUR ---
PT RESTING IN BED WITH NO STATED SYMPTOMS OF PAIN. PT ENCOURAGED TO CALL FOR ANY NEEDS. CALL RAMIREZ WITHIN REACH. WILL CONTINUE TO MONITOR.
--- NOTE | 2020-04-27 16:29 | NUR ---
PT note Patient is seen for bed exercises as before F/B CPT percussion to the lower lobes in sitting. He also performed DBE and coughing. His O2 sats dropped to the 70 s on 5 lnc and he has decreased CWE . He dod recover with coughing and slow DBE. Still limited and will need home o2. He was able to march in place 20 steps prior to desaturation
--- NOTE | 2020-04-27 19:05 | NUR ---
awake. denies resp diff. o2 cont per nc. design/animation instructor shows sinus rhythm hr 96. #22 rac saline lock. po fluids taken well. voids per urinal. urine clear yellow. rash on back improving. fall & air/contact precautions cont.
--- NOTE | 2020-04-27 22:00 | NUR ---
talking on phone. nad. supervisor vendor quality shows sinus rhythm hr 72.
[2020-04-28] VITALS (11 sets, daily range): BP systolic 109–137; BP diastolic 68–91
--- NOTE | 2020-04-28 00:01 | NUR ---
eyes closed. lying in prone position. nad.
--- NOTE | 2020-04-28 02:00 | NUR ---
resting quietly. lying in prone position. resps even & unlabored. nad. o2 cont.
--- NOTE | 2020-04-28 03:56 | NUR ---
eyes closed/ remains in prone position. applied biology professor shows sinus rhythm hr 67.
--- NOTE | 2020-04-28 04:40 | NUR ---
blood drawn & sent to lab.
[2020-04-28 05:19] LABS: HEMATOCRIT 39.5 % (39.0-50.0); HEMOGLOBIN 13.8 g/dl (14.0-18.0); IMMATURE GRANULOCYTES 0.5 % (0.0-5.0); MEAN CELL VOLUME 84.9 fL CALC (80.0-100.0); MEAN CORPUSCULAR HGB 29.7 pG CALC (26.0-32.0); MEAN CORPUSCULAR HGB CONC 34.9 g/dL CAL (32.0-36.0); NEUT# 5.71 thou/uL (1.82-7.42); RED BLOOD COUNT 4.65 mill/uL (4.70-6.10); RED CELL DISTRI WIDTH 12.5 % (11.5-15.5)
[2020-04-28 05:37] LABS: ALBUMIN 3.2 g/dL (3.2-5.0); ALKALINE PHOSPHATASE 126 u/l (38-126); ANION GAP 12 (6-22 (CALC)); BILIRUBIN, TOTAL 1.3 mg/dL (0.0-1.4); BUN 16 mg/dL (9-20); BUN/CREATININE RATIO 34 (12-20 (CALC)); C-REACTIVE PROTEIN 2.4 mg/dL (0-0.9); CARBON DIOXIDE 23 mmol/l (22-30); CHLORIDE 101 mmol/l (95-108); CREATININE 0.5 mg/dL (0.7-1.3); GFR > 60 ML/MIN (>=60 (CALC)); GFR FOR AFR.AMER. > 60 ML/MIN (>=60 (CALC)); POTASSIUM 4.3 mmol/l (3.5-5.1); SGOT/AST 34 u/l (17-59); SODIUM 132 mmol/l (137-146); TOTAL PROTEIN 6.2 g/dL (6.3-8.2)
--- NOTE | 2020-04-28 05:52 | NUR ---
eyes closed. nad. o2 cont.
--- NOTE | 2020-04-28 07:15 | NUR ---
pt awake in bed; no apparent distress noted; pt offers no complaints; assessment completed at this time; pt alert and oriented; denies pain; no n/v noted; resp even and unlabored; sob with exertion noted; lungs clear/ diminished bases; skin color wnl; o2 per nc at 3L; specialty manufacturing supervisor cough noted; hr reg; strong pulses; no edema noted; sr on monitor; abd soft with bs present; no bm noted per medical underwriter; no urine to inspect at this time; urinal at bedside; #20 flushed and patent to lfa; no redness or edema noted at site; plan of care/ am meds explained; call light within reach; will continue to monitor
--- NOTE | 2020-04-28 07:57 | NUR ---
awake in bed eating breakfast; offers no complaints; no apparent distress noted; call light within reach; will continue to monitor
--- NOTE | 2020-04-28 10:08 | NUR ---
awake in bed; no apparent distress noted; pt offers no complaints; iv intact; sr on monitor; call light within reach; will continue to monitor
--- NOTE | 2020-04-28 12:13 | NUR ---
awake in bed eating lunch; no apparent distress noted; pt offers no complaints; iv intact; st on monitor; o2 per nc; call light within reach; will continue to monitor
--- NOTE | 2020-04-28 14:06 | NUR ---
awake in bed; no apparent distress noted; pt offers no complaints; iv intact; sr on monitor; o2 per nc; call light within reach; will continue to monitor
--- NOTE | 2020-04-28 16:05 | NUR ---
awake in bed; no apparent distress noted; pt offers no complaints; iv intact; o2 per nc; sr on monitor; call light within reach; will continue to monitor
--- NOTE | 2020-04-28 18:13 | NUR ---
awake in bed eating dinner; no apparent distress noted; pt offers no complaints; iv intact; o2 per nc; sr on monitor; call light within reach
--- NOTE | 2020-04-28 19:30 | NUR ---
awake. talking on cell phone. denies resp diff. o2 cont per nc. quality assurance monitor final shows sinus rhythm hr 94. po fluids taken well voids per urinal. fall precautions cont.
--- NOTE | 2020-04-28 21:15 | NUR ---
pt did his accucheck & insulin injection with good technique.
[2020-04-29] VITALS (11 sets, daily range): BP systolic 103–149; BP diastolic 58–99
--- NOTE | 2020-04-29 00:01 | NUR ---
eyes closed. nad. clinical research monitor shows sinus rhythm hr 80.
--- NOTE | 2020-04-29 02:00 | NUR ---
resting quietly. resps even & unlabored. no apparent distress.
--- NOTE | 2020-04-29 04:00 | NUR ---
eyes closed. nad. panel monitor shows sinus rhythm hr 88.
--- NOTE | 2020-04-29 06:00 | NUR ---
EYES CLOSED. O2 CONT. TEAM CDL DRIVER SHOWS SINUS RHYTHM HR 88
--- NOTE | 2020-04-29 07:30 | NUR ---
pt awake in bed; no apparent distress noted; pt offers no complaints; assessment completed at this time; pt alert and oriented; denies pain; no n/v noted; resp even and unlabored; lungs clear/ diminished bases; skin color wnl; o2 per nc at 3L; toolroom clerk cough noted; hr reg; strong pulses; no edema noted; sr on monitor; abd soft with bs present; no bm noted per job specification writer; pt voiding without complication; no urine to inspect at this time; urinal at bedside; #20 patent to lfa; no redness or edema noted at site; rash noted to left lat upper back, bilat groin fold, mid lower abd; plan of care/ am meds/ prone position explained; call light within reach; will continue to monitor
--- NOTE | 2020-04-29 08:10 | NUR ---
awake in bed eating breakfast; no apparent distress noted; pt offers no complaints; iv intact; sr on monitor; am meds explained and given; will continue to monitor
--- NOTE | 2020-04-29 08:10 | NUR ---
educated on insulin dosage; pt able to self administer levemir
--- NOTE | 2020-04-29 10:20 | NUR ---
pt awake in bed on cell phone; no apparent distress noted; pt offers no complaints; sr on monitor; call light within reach; will continue to monitor
--- NOTE | 2020-04-29 12:05 | NUR ---
pt awake in bed; no apparent distress noted; pt offers no complaints; iv intact; o2 per nc; st on monitor; call light within reach; will continue to monitor
--- NOTE | 2020-04-29 14:01 | NUR ---
pt awake in bed; no apparent distress noted; st on monitor; o2 per nc; call light within reach; will continue to monitor
--- NOTE | 2020-04-29 16:10 | NUR ---
awake in bed; no apparent distress noted; pt offers no complaints; o2 per nc; st on monitor; iv intact; call light within reach; will continue to monitor
--- NOTE | 2020-04-29 17:49 | NUR ---
pt up to bsc for bm; st 150s with exertion
--- NOTE | 2020-04-29 18:09 | NUR ---
awake in bed; st on monitor; no apparent distress noted; iv intact; o2 per nc; call light within reach
--- NOTE | 2020-04-29 19:45 | NUR ---
awake. denies distress. o2 cont per nc. monitor technician shows sinus tach hr 108. po fluids taken well. voids per urinal. fall & air/contact precautions cont.
--- NOTE | 2020-04-29 22:00 | NUR ---
talking on cell phone. nad. no c/o.
[2020-04-30] VITALS (10 sets, daily range): BP systolic 110–137; BP diastolic 69–88
--- NOTE | 2020-04-30 00:01 | NUR ---
eyes closed.nad. classroom monitor shows sinus rhythm hr 92. o2 cont.
--- NOTE | 2020-04-30 02:00 | NUR ---
resting quietly. resps even & unlabored. no apparent distress. cardiac rehab nurse shows sinus rhythm hr 94.
--- NOTE | 2020-04-30 04:00 | NUR ---
eyes closed. nad. o2 cont. hot pipe gauger shows sinus tach hr 100.
--- NOTE | 2020-04-30 06:00 | NUR ---
SAO2 WHILE SLEEPING ON BACK HAS BEEN 93-94%, IN PRONE POSITION HAS BEEN 98-99% ON O2.
--- NOTE | 2020-04-30 06:00 | NUR ---
eyes closed. no resp diff this shift. o2 cont.
--- NOTE | 2020-04-30 06:45 | NUR ---
REPORT RECEIVED FROM MAGDA MCCRARY. CARE ASSUMED.
--- NOTE | 2020-04-30 07:20 | NUR ---
PT RESTING IN BED AWAKE. PT IS ALERT AND ORIENTED X3. SHIFT ASSESSMENT COMPLETED AT THIS TIME. IV PATENT X1. PT STATES THAT HE IS NOT FEELING WELL TODAY. PT STATES THAT HE IS HAVING SHORTNESS OF BREATH ON MINIMAL EXERTION. PT IS ON O2 3L NC AT THIS TIME. O2 SATS REMAIN >92%. ST ON MONITOR. WILL DISCUSS FINDINGS WITH MD. CALL LIGHT IN REACH. WILL CONTINUE TO MONITOR.
--- NOTE | 2020-04-30 08:00 | NUR ---
DR NIEVES NOTIFIED OF TACHYCARDIA. EKG ORDERED. RT NOTIFIED.
--- NOTE | 2020-04-30 08:17 | NUR ---
DR NIEVES AT BEDSIDE AT THIS TIME.
--- NOTE | 2020-04-30 08:19 | NUR ---
RT AT BEDSIDE TO COMPLETE BEDSIDE EKG.
--- NOTE | 2020-04-30 08:55 | NUR ---
PT TO RADIOLOGY FOR CT SCAN VIA WHEELCHAIR.
--- NOTE | 2020-04-30 09:30 | NUR ---
PT RETURNED FROM RADIOLOGY VIA WHEELCHAIR.
--- NOTE | 2020-04-30 11:00 | NUR ---
PT RESTING IN BED WATCHING TV. RESP ARE EVEN AND UNLABORED. NO DISTRESS NOTED. CALL LIGHT IN REACH. WILL CONTINUE TO MONITOR.
--- NOTE | 2020-04-30 12:07 | NUR ---
METOPROLOL GIVEN TO PT, INITIAL FIRST DOSE MEDICATION EDUCATION GIVEN TO PT. PT VERBALIZED UNDERSTANDING. CALL LIGHT IN REACH, CONTINUE TO MONITOR.
--- NOTE | 2020-04-30 14:17 | NUR ---
PT AT BEDSIDE AT THIS TIME
--- NOTE | 2020-04-30 16:01 | NUR ---
PT TO [employer] FOR A SHOWER AT THIS TIME. PT ACCOMPANIED BY ASTROPHYSICS PROFESSOR.
--- NOTE | 2020-04-30 16:43 | NUR ---
PT RETURNED FROM MEDR AND TAKING A SHOWER. PT IN STABLE CONDITION.
--- NOTE | 2020-04-30 18:04 | NUR ---
PT SITTING UP IN BED WATCHING TV. RESP ARE EVEN AND UNLABOTED. NO DISTRESS NOTED. CALL LIGHT IN REACH. WILL CONTINUE TO MONITOR.
--- NOTE | 2020-04-30 19:00 | NUR ---
PT AWAKE AND ALERT, WATCHING TV. DENIES ANY RESP DIFF AT THIS TIME.
--- NOTE | 2020-04-30 20:00 | NUR ---
PT AWAKE AND ALERT. NO RESP DISTRESS NOTED. PT WITH NO NEEDS AT THIS TIME. CALL RAMIREZ IN REACH.
--- NOTE | 2020-04-30 22:56 | NUR ---
B/P 189/117, LABETOLOL 10MG GIVEN PER MAR.
[2020-05-01] VITALS (16 sets, daily range): BP systolic 101–129; BP diastolic 66–94
--- NOTE | 2020-05-01 | NUR ---
PT IN PRONE POSITION, NO RESP DISTRESS NOTED. CALL RAMIREZ IN REACH.
--- NOTE | 2020-05-01 02:02 | NUR ---
PT PRONE WITH EYES CLOSED. NO RESP DISTRESS, SA02 99% 02 REDUCED TO 2L VIA NC.
--- NOTE | 2020-05-01 04:00 | NUR ---
PT IN PRONE POSITION. 02 AT 2L VIA NC. SA02 97%. CALL RAMIREZ IN REACH.
--- NOTE | 2020-05-01 06:00 | NUR ---
PT REMAINS PRONE, NO RESP DISTRESS NOTED. CALL RAMIREZ IN REACH.
[2020-05-01 06:18] LABS: ANION GAP 13 (6-22 (CALC)); BUN 12 mg/dL (9-20); BUN/CREATININE RATIO 28 (12-20 (CALC)); CARBON DIOXIDE 19 mmol/l (22-30); CHLORIDE 104 mmol/l (95-108); CREATININE 0.4 mg/dL (0.7-1.3); GFR > 60 ML/MIN (>=60 (CALC)); GFR FOR AFR.AMER. > 60 ML/MIN (>=60 (CALC)); POTASSIUM 4.2 mmol/l (3.5-5.1); SODIUM 131 mmol/l (137-146)
--- NOTE | 2020-05-01 06:45 | NUR ---
REPORT RECEIVED FROM MILLY LINTON. CARE ASSUMED.
--- NOTE | 2020-05-01 07:00 | NUR ---
PT RESTING IN BED AWAKE. PT IS ALERT AND ORIENTED X3. SHIFT ASSESSMENT COMPLETED AT THIS TIME. IV PATENT X1. O2 DECREASED FROM 2L NC TO 1L NC. O2 SATS REMAIN GREATER THAN 94%. DISCUSSED WITH PATIENT THAT PLAN TODAY WAS TO GET UP AND SIT IN CHAIR AND TO MONITOR O2. PT VERBALIZED UNDERSTANDING. CALL LIGHT IN REACH. WILL CONTINUE TO MONITOR.
--- NOTE | 2020-05-01 07:45 | NUR ---
LAB AT BEDSIDE AT THIS TIME
--- NOTE | 2020-05-01 08:00 | NUR ---
PT ASSISTED UP TO RECLINER AT BEDSIDE AND SET UP FOR AM MEAL. O2 SATS ON 1L NC REMAINS >92%. CALL LIGHT IN REACH. WILL CONTINUE TO MONITOR.
--- NOTE | 2020-05-01 08:20 | NUR ---
DR NIEVES AT BEDSIDE AT THIS TIME
[2020-05-01 08:55] LABS: HEMATOCRIT 38.7 % (39.0-50.0); HEMOGLOBIN 13.5 g/dl (14.0-18.0); IMMATURE GRANULOCYTES 0.4 % (0.0-5.0); MEAN CORPUSCULAR HGB CONC 34.9 g/dL CAL (32.0-36.0); NEUT# 6.49 thou/uL (1.82-7.42); RED BLOOD COUNT 4.5 mill/uL (4.70-6.10); RED CELL DISTRI WIDTH 13.3 % (11.5-15.5)
--- NOTE | 2020-05-01 09:30 | NUR ---
PT ASSISTED BACK TO BED AT THIS TIME O2 INCREASED TO 2L NC DUE TO 89% ENCOURAGED TO LAY PRONE WELL.
--- NOTE | 2020-05-01 11:54 | NUR ---
PT SET UP ON SIDE OF BED FOR NOON MEAL. O2 REMAINS AT 2L NC. SATS AT 98%. CALL LIGHT IN REACH. WILL CONTINUE TO MONITOR.
--- NOTE | 2020-05-01 14:00 | NUR ---
PT RESTING IN BED AT THIS TIME. RESP ARE EVEN AND UNLABORED. NO DISTRESS NOTED. CALL LIGHT IN REACH. WILL CONTINUE TO MONITOR.
--- NOTE | 2020-05-01 15:17 | NUR ---
PT AT BEDSIDE AT THIS TIME
--- NOTE | 2020-05-01 15:53 | NUR ---
Patient on 1 l nc maintaining o2 sats at 94% He is able to transfer independently and ambualting in the room x 100 feet with vitals stable and o2 sats 94% nearly asymptomatic. He is independent with pulmonary toilet and is encouraged to increase activity
--- NOTE | 2020-05-01 16:37 | NUR ---
PT RESTING IN BED PRONE AT THIS TIME. RESP ARE EVEN AND UNLABORED. NO DISTRESS NOTED. CALL LGT IN [facility]. WILL CONTINUE TO MONITOR.
--- NOTE | 2020-05-01 19:02 | NUR ---
PT AWAKE AND ALERT, SITTING UP ON SIDE OF BED. NO RESP DIFF NOTED. CALL RAMIREZ IN REACH.
--- NOTE | 2020-05-01 20:00 | NUR ---
PT LYING IN BED, TALKING ON CELL PHONE. NO RESP DIFF NOTED. NO NEEDS AT THIS TIME. CALL RAMIREZ IN REACH.
--- NOTE | 2020-05-01 21:00 | NUR ---
PT WITH COUGH, REQUESTED COUGH MED. PROVIDED PER DEC.
--- NOTE | 2020-05-01 22:00 | NUR ---
PT LYING IN BED WATCHING TV. NO RESP DISTRESS NOTED. DECREASE IN COUGHING NOTED. CALL RAMIREZ IN REACH.
[2020-05-02] VITALS (13 sets, daily range): BP systolic 100–171; BP diastolic 62–91
--- NOTE | 2020-05-02 | NUR ---
PT IN PRONE POSITION, NO RESP DISTRESS. CALL RAMIREZ IN REACH.
--- NOTE | 2020-05-02 02:00 | NUR ---
PT IN PRONE POSITION WITH EYES CLOSED. NO RESP DISTRESS NOTED. CALL RAMIREZ IN REACH.
--- NOTE | 2020-05-02 04:00 | NUR ---
PT INPRONE POSITION WHEN RN ENTERED ROOM. PT RESPONDS TO VERBAL STIMULI. NO RESP DIFF NOTED. SA02 97% CALL RAMIREZ IN REACH.
--- NOTE | 2020-05-02 06:00 | NUR ---
PT ON L SIDE. NO RESP DISTRESS NOTED. CALL RAMIREZ IN REACH.
--- NOTE | 2020-05-02 07:05 | NUR ---
pt awake in bed; no apparent distress noted; pt offers no complaints; assessment completed at this time; pt alert and oriented; denies pain; no n/v noted; resp even and unlabored; lungs clear/ diminished; skin color wnl; o2 per nc at 2L; nonprofit director cough noted; hr reg; strong pulses; no edema noted; sr on monitor; abd soft with bs present; no bm noted per auto service writer; pt voiding denzel urine without complication; urinal at bedside; #20 flushed and patent to lfa; no redness or edema noted at site; plan of care/ am meds explained; call light within reach; will continue to monitor
--- NOTE | 2020-05-02 08:05 | NUR ---
Dr Novak present at bedside to assess pt and discuss plan of care
--- NOTE | 2020-05-02 10:08 | NUR ---
awake in bed; no apparent distress noted; pt offers no complaints; sr on monitor; iv intact; urinal at bedside; call light within reach; will continue to monitor
--- NOTE | 2020-05-02 11:09 | NUR ---
insulin explained; pt self administered to lower abd
--- NOTE | 2020-05-02 12:05 | NUR ---
awake in bed eating lunch; no apparent distress noted; pt offers no complaints; iv intact; o2 per nc; sr on monitor; call light within reach; will continue to monitor
--- NOTE | 2020-05-02 14:06 | NUR ---
awake in bed; no apparent distress noted; pt offers no complaints; iv intact; urinal at bedside; sr on monitor; o2 per nc; call light within reach; will continue to monitor
--- NOTE | 2020-05-02 16:05 | NUR ---
awake in bed; offers no complaints; iv intact; sr on monitor; o2 per nc; call light within reach; will continue to monitor
--- NOTE | 2020-05-02 18:09 | NUR ---
awake sitting on side of bed; no apparent distress noted; pt offers no complaints; st on monitor; o2 per nc; iv intact; call light within reach;
--- NOTE | 2020-05-02 19:20 | NUR ---
RESTING IN BED ON ROUNDS. RESP NON-LABORED. O2 ON AT 2 L NC, O2 SAT 98% BREATH SOUNDS DIMINISHED THROUGHOUT. PATIENT STATES HE IS FEELING MUCH BETTER. SALINE LOCK IN LFA, SITE BENIGN. AMMONIUM HYDROXIDE OPERATOR SHOWS SR, HR 90'S. DISCUSSED PLAN OF CARE. DENIES NEEDS AT THIS TIME. CALL RAMIREZ IN REACH.
--- NOTE | 2020-05-02 20:30 | NUR ---
PATIENT DID HIS OWN ACCU CHECK AND ADMINISTERED HIS OWN INSULIN INJECTIONS, GOOD TECHNIQUE OBSERVED. HS SNACK PROVIDED.
--- NOTE | 2020-05-02 22:00 | NUR ---
RESTING IN BED, WATCHING TV AND ON AND OFF PHONE. NO COMPLAINTS VOICED. VSS. O2 SAT 98% SR ON MONITOR.
[2020-05-03] VITALS (11 sets, daily range): BP systolic 97–141; BP diastolic 55–88
--- NOTE | 2020-05-03 00:05 | NUR ---
PATIENT SLEEPING ON LEFTSIDE. MAINTAINING O2 SAT UPPER 90'S. RESP NON-LABORED. SR ON MONITOR.
--- NOTE | 2020-05-03 02:00 | NUR ---
RESTING WITH EYES CLOSED. RESP NON-LABORED. MAINTAINS O2 SAT UPPER 95%
--- NOTE | 2020-05-03 04:20 | NUR ---
PATIENT AWAKENS TO NAME. BLOOD DRAWN FOR AM LAB WORK ORDERED. ELIOSE HAS MAINTAINED HIS O2 SATS TONIGHT >95% ON 2 L NC, DECREASED O2 TO 1 L NC AT THIS TIME. SALINE LOCK IN LFA FLUSHED AND PATENT, SITE BENIGN.
[2020-05-03 05:24] LABS: HEMATOCRIT 34.7 % (39.0-50.0); HEMOGLOBIN 12.1 g/dl (14.0-18.0); IMMATURE GRANULOCYTES 0.4 % (0.0-5.0); MEAN CELL VOLUME 86.3 fL CALC (80.0-100.0); MEAN CORPUSCULAR HGB 30.1 pG CALC (26.0-32.0); MEAN CORPUSCULAR HGB CONC 34.9 g/dL CAL (32.0-36.0); NEUT# 2.78 thou/uL (1.82-7.42); RED BLOOD COUNT 4.02 mill/uL (4.70-6.10); RED CELL DISTRI WIDTH 13.3 % (11.5-15.5)
[2020-05-03 05:40] LABS: BUN 9 mg/dL (9-20); BUN/CREATININE RATIO 23 (12-20 (CALC)); C-REACTIVE PROTEIN 4.9 mg/dL (0-0.9); CHLORIDE 105 mmol/l (95-108); CREATININE 0.4 mg/dL (0.7-1.3); GFR > 60 ML/MIN (>=60 (CALC)); GFR FOR AFR.AMER. > 60 ML/MIN (>=60 (CALC)); POTASSIUM 3.9 mmol/l (3.5-5.1); SODIUM 135 mmol/l (137-146)
[2020-05-03 05:44] LABS: ANION GAP 7 (6-22 (CALC)); CARBON DIOXIDE 27 mmol/l (22-30)
--- NOTE | 2020-05-03 06:07 | NUR ---
VSS. RESP HAVE BEEN EVEN AND UNLABORED THROUGHOUT THE NIGHT. ON O2 AT 1 L NC. O2 SAT 97% SR ON MONITOR.
--- NOTE | 2020-05-03 07:05 | NUR ---
pt awake in bed; no apparent distress noted; pt offers no complaints; assessment completed at this time; pt alert and oriented; denies pain; no n/v noted; resp even and unlabored; lungs clear/ diminished bases; skin color wnl; o2 per nc at 1L; cough noted; hr reg; strong pulses; no edema noted; sr on monitor; abd soft with bs present; no bm noted per display card writer; pt voiding clear yellow urine; urinal at bedside; #20 flushed and patent to lfa; no redness or edema noted at site; plan of care/ am meds explained; call light within reach; will continue to monitor
--- NOTE | 2020-05-03 08:13 | NUR ---
awake in bed; no apparent distress noted; pt offers no complaints; sr on monitor; o2 per nc; call light within reach; will continue to monitor
--- NOTE | 2020-05-03 08:24 | NUR ---
Dr Novak present at bedside to assess pt and discuss plan of care
--- NOTE | 2020-05-03 10:02 | NUR ---
pt awake in bed; no apparent distress noted; resp even and unlabored; o2 per nc; iv intact; sr on monitor; call light within reach; will continue to monitor
--- NOTE | 2020-05-03 12:10 | NUR ---
awake sitting on side of bed eating lunch; offers no complaints; sr on monitor; no apparent distress noted; o2 per nc; call light within reach; will continue to monitor
--- NOTE | 2020-05-03 14:00 | NUR ---
resting in bed with eyes closed; no apparent distress noted; sr on monitor; call light within reach; will continue to monitor
--- NOTE | 2020-05-03 16:06 | NUR ---
awake in bed; no apparent distress noted; pt offers no complaints; iv intact; p2 per nc at 1L; sr on monitor; call light within reach; will continue to monitor
--- NOTE | 2020-05-03 16:28 | NUR ---
report called to Kym Alonso LPN
--- NOTE | 2020-05-03 16:56 | NUR ---
pt transferred to med surg tele [phone] via wc with portable o2 in stable condition; pt belongings sent with pt
--- NOTE | 2020-05-03 17:00 | NUR ---
PT ARRIVED VIA WC WITH STAFF. NO DISTRESS NOTED. IV SITE IS FREE FROM REDNESS OR EDEMA.
--- NOTE | 2020-05-03 20:25 | NUR ---
PT RESTING IN BED, NO SIGNS OF DISTRESS NOTED, RESP EVEN AND UNLABORED. PT ALERT AND ORIENTED X3, PT VOICES NO NEEDS OR COMPLAINTS AT THIS TIME. 02 1L NC, PT STATS 96% ASSESSMENT COMPLETED, IS AT BEDSIDE ENCOURAGED IT'S USE. NOTED RASH TO PTS ABD AND HANDS. CREAM AT BEDSIDE APPLIED BY PT, PT MEDICATED HIMSELF WITH INSULIN. CALL LIGHT IN REACH,CONTINUE TO MONITOR.
[2020-05-04 00:05] VITALS: BP 95/55
--- NOTE | 2020-05-04 00:14 | NUR ---
PT RESTING IN BED WITH EYES CLOSED, NO SIGNS OF DISTRESS NOTED, RESP EVEN AND UNLABORED. CALL LIGHT IN REACH,CONTINUE TO MONITOR.
[2020-05-04 03:37] VITALS: BP 124/75
--- NOTE | 2020-05-04 06:10 | NUR ---
PT RESTING IN BED WITH EYES CLOSED, NO SIGNS OF DISTRESS NOTED, RESP EVEN AND UNLABORED. CALL LIGHT IN REACH,CONTINUE TO MONITOR.
[2020-05-04 08:20] VITALS: BP 129/78
--- NOTE | 2020-05-04 08:20 | NUR ---
ASSESSMENT IS COMPLETED: IV SITE IS FREE FROM REDNESS OR EDEMA. HR IS REG,PULSES ARE STRONG X4,ABD IS SOFT WITH ACTIVE BS, BREATH SOUNDS ARE CLEAR,BILATERALLY. NO C/O SOB. O2 @ 0.5LITERS NC. TELE MONITOR IN PLACE. CONTINUE TO OSBERVE AND MONITOR.
[2020-05-04 11:30] VITALS: BP 134/80
--- NOTE | 2020-05-04 12:30 | NUR ---
PT HAS BEEN RELAXING IN THE ROOM. NO DISTRESS NOTED. O2 IS OFF THE PT AT THIS TIME. SATS ARE 97% NO C/O SOB. CONTINUE TO OBSERVE AND MONITOR.
--- NOTE | 2020-05-04 15:08 | NUR ---
PT Note Patient is able to get OOB and ambulated without o2 and vitals stable in room x 300 feet independently. I encouraged ambulation x 6 a day with o2 for now At this point I will go ahead and DC from PT as his inceentive spirometer is [phone] and he is funcitonally independent
[2020-05-04 16:10] VITALS: BP 139/87
--- NOTE | 2020-05-04 16:45 | NUR ---
PT DID THE WALK TEST. O2 SATS STAYED 94% ON ROOM AIR.NO DISTRESS NOTED. IV SITE IS FREE FROM REDNESS OR EDEMA. CONTINUE TO OBSERVED AND MONITOR.
[2020-05-04 20:15] VITALS: BP 124/78
--- NOTE | 2020-05-04 21:00 | NUR ---
ASSESSMENT COMPLETED. NO DISTRESS NOTED; PT. SITTING UP ON COUCH WITH NO DISTRESS NOTED; C/O COUGH AND MEDICATED WITH ORDERED PRN ROBITUSSIN ALONG WITH SCHED MEDS. PT. REPORTING IV SITE TO RFA IS HURTING AND REMOVED WITH CATHETER TIP INTACT. NEW IV SITE PLACED TO LAC X1 ATTEMPT; PT. TOLERATED WELL. PT. REMAINS ON RA WITH NO RESP. DISTRESS NOTED; ENCOURAGED TO CALL FOR ANY NEEDS. CALL LIGHT IS IN REACH.
[2020-05-05 00:15] VITALS: BP 95/65
--- NOTE | 2020-05-05 00:20 | NUR ---
NO DISTRESS NOTED. DENIES NEEDS. CALL LIGHT IS IN REACH.
--- NOTE | 2020-05-05 03:00 | NUR ---
RESTING IN BED WITH EYES CLOSED; NO DISTRESS NOTED; CALL LIGHT IS IN REACH.
[2020-05-05 04:12] VITALS: BP 125/75
--- NOTE | 2020-05-05 04:12 | NUR ---
AM VS OBTAINED; URINAL EMPTIED. DENIES NEEDS AND VOICES NO CONCERNS. CALL LIGHT IS IN REACH.
[2020-05-05 05:54] LABS: ALKALINE PHOSPHATASE 129 u/l (38-126); ANION GAP 8 (6-22 (CALC)); BILIRUBIN, TOTAL 1.1 mg/dL (0.0-1.4); BUN 8 mg/dL (9-20); BUN/CREATININE RATIO 18 (12-20 (CALC)); C-REACTIVE PROTEIN 2.9 mg/dL (0-0.9); CARBON DIOXIDE 28 mmol/l (22-30); CHLORIDE 103 mmol/l (95-108); CREATININE 0.5 mg/dL (0.7-1.3); GFR > 60 ML/MIN (>=60 (CALC)); GFR FOR AFR.AMER. > 60 ML/MIN (>=60 (CALC)); POTASSIUM 3.9 mmol/l (3.5-5.1); SGOT/AST 33 u/l (17-59); SODIUM 135 mmol/l (137-146); TOTAL PROTEIN 5.9 g/dL (6.3-8.2)
[2020-05-05 06:07] LABS: HEMOGLOBIN 11.9 g/dl (14.0-18.0); IMMATURE GRANULOCYTES 1.2 % (0.0-5.0); MEAN CELL VOLUME 86.3 fL CALC (80.0-100.0); MEAN CORPUSCULAR HGB 30.2 pG CALC (26.0-32.0); NEUT# 2.79 thou/uL (1.82-7.42); RED BLOOD COUNT 3.94 mill/uL (4.70-6.10); RED CELL DISTRI WIDTH 13.3 % (11.5-15.5)
[2020-05-05 08:48] VITALS: BP 119/89
--- NOTE | 2020-05-05 08:48 | NUR ---
PT SITTING ON SIDE OF BED, NO SIGNS OF DISTRESS NOTED, RESP EVEN AND UNLABORED. DISCUSSED POC, PT SATS 95% ON RA, PT VOICES NO NEEDS OR COMPLAINTS AT THIS TIME. MD AT BEDSIDE, DISCUSSING DISCHARGE INSTRUCTIONS. ASSESSMENT COMPLETED, CALL LIGHT IN REACH,CONTINUE TO MONITOR.
[2020-05-05 11:31] VITALS: BP 116/78
--- NOTE | 2020-05-05 12:28 | NUR ---
PT SITTING IN RECLINER IN ROOM, NO SIGNS OF DISTRESS NOTED, RESP EVEN AND UNLABORED. PT VOICES NO NEEDS OR COMPLAINTS AT THIS TIME, CALL LIGHT IN REACH,CONTINUE TO MONITOR.
[2020-05-05] MEDS ORDERED: LOPRESSOR25 MG PO (12:40)
[2020-05-05] MEDS ORDERED: METFORMIN HYD1000 MG PO (12:40)
[2020-05-05] MEDS ORDERED: METFORMIN500 M2 PO (12:59)
--- NOTE | 2020-05-05 13:26 | NUR ---
PT SITTING IN CHAIR AT BEDSIDE, DISCUSSED DISCHARGE INFORMATION, PT VERBALIZED UNDERSTANDING. EDUCATION PROVIDED IN [place], IV DC'D CATHETER INTACT. PT TO CALL ONCE RIDE ARRIVES. CONTINUE TO MONITOR.
--- NOTE | 2020-05-05 15:55 | NUR ---
PT AWAITING HIS RIDE, FAMILY COMING FROM OUT OF TOWN, CALL LIGHT IN REACH,CONTINUE TO MONITOR.
[2020-05-05 16:11] VITALS: BP 120/75
[2020-05-05 20:15] VITALS: BP 123/71
--- NOTE | 2020-05-05 20:15 | NUR ---
PT. WENT DOWN STAIRS VIA W/C WITH MASK IN PLACE. D/C INSTRUCTIONS REVIEWED WITH PT. BY [employer] NURSE. ASKED PT. IF HE AHD ANY QUESTIONS AND DENIES AT THIS TIME. [employer] [employer] EDUCATION SHEETS PROVIDED WITH LOGS TO DOCUMENT BS.
--- NOTE | 2020-05-15 12:58 | NUR ---
Pneumonia post discharge call completed today, 05/15/20. Pt. states he is doing well. No cough, fever, chills and much improvement to SOB. Pt. is taking prescriged discharge medications without issue. Follow up appt. with [facility]CP is scheduled for later this week. No questions or needs expressed by patient at this time.
== END 2020-05-05 20:15 | disposition home or self-care (01) | DRG 177 ==
LOC: ED 18:29 → ED-I 19:25 → ED 19:25 → ED-I 22:39 → ED 23:16 → ED-I 23:17 → MS2 04-06 00:07 → ICU 04-06 11:57 → MS2 04-06 11:58 → ICU 04-10 15:50 → MS2 05-03 16:56
PROVIDERS: Emergency Medicine; Internal Medicine; Nurse Practitioner; Nurse Practitioner Family; ADMIT Internal Medicine; ATTEND Internal Medicine
PROC: 0T9B70Z Drainage of Bladder with Drainage Device, Via Natural or Artificial Opening (ICD-10-PCS; principal; 2020-04-21)
DX: U07.1 COVID-19 (principal); J12.89 Other viral pneumonia; J96.01 Acute respiratory failure with hypoxia; D69.6 Thrombocytopenia, unspecified; E11.65 Type 2 diabetes mellitus with hyperglycemia; T38.0X5A Adverse effect of glucocorticoids and synthetic analogues, initial encounter; B35.9 Dermatophytosis, unspecified; R00.0 Tachycardia, unspecified
CPT/HCPCS: J1650; Q3014; Q9967

== ENCOUNTER 2023-10-26 11:01 | Emergency (ER) | payer OTHER ==
[~2023-10-26] VITALS: Ht 167.6 cm; Wt 103.0 kg
[~2023-10-26 11:01] MED LIST: LOPRESSOR25 MG PO; METFORMIN HYD1000 MG PO; METFORMIN500 M2 PO
[2023-10-26 11:11] VITALS: BP 168/95
[2023-10-26 11:29] LABS: BASO% 0.3 % (0-3); EOS% 1.8 % (0-8); IMMATURE GRANULOCYTES 0.3 % (0.0-5.0); LYMPH% 14.7 % (15-41); MEAN CELL VOLUME 88.3 fL CALC (80.0-100.0); MEAN CORPUSCULAR HGB 30.6 pG CALC (26.0-32.0); MEAN CORPUSCULAR HGB CONC 34.7 g/dL CAL (32.0-36.0); MONO% 6.4 % (2-13); NEUT# 6.8 thou/uL (1.82-7.42); NEUT% 76.5 % (42-76); RED BLOOD COUNT 5.29 mill/uL (4.70-6.10); RED CELL DISTRI WIDTH 12.3 % (11.5-15.5)
[2023-10-26 11:33] LABS: URINE BILIRUBIN - DIPSTICK Negative (NEGATIVE); URINE BLOOD DIPSTICK Trace-lysed (NEGATIVE); URINE GLUCOSE - DIPSTICK Negative (NEGATIVE); URINE KETONE Negative (NEGATIVE); URINE LEUK ESTERASE Negative (NEGATIVE); URINE NITRITE - DIPSTICK Negative (Negative); URINE PROTEIN - DIPSTICK >=300 mg/dL (NEG-TRACE); URINE SPECIFIC GRAVITY 1.025; URINE UROBILINOGEN - DIPSTICK 0.2 E.U./dL (0.2)
[2023-10-26 11:37] LABS: HEMATOCRIT 46.7 % (39.0-50.0); HEMOGLOBIN 16.2 g/dl (14.0-18.0)
[2023-10-26 11:38] LABS: URINE COLOR Yellow
[2023-10-26 11:43] LABS: URINE SQUAMOUS EPITHELIAL CELL RARE EPI/hpf (0-FEW)
[2023-10-26 11:44] LABS: ALKALINE PHOSPHATASE 106 u/l (38-126); ANION GAP 12 (6-22 (CALC)); BILIRUBIN, TOTAL 0.8 mg/dL (0.2-1.3); BUN 14 mg/dL (9-20); BUN/CREATININE RATIO 19 (12-20 (CALC)); CARBON DIOXIDE 25 mmol/l (22-30); CHLORIDE 107 mmol/l (95-108); CREATININE 0.8 mg/dL (0.7-1.3); GFR FOR AFR.AMER. > 60 ML/MIN (>=60 (CALC)); GFR OTHER RACES > 60 ML/MIN (>=60 (CALC)); POTASSIUM 4.4 mmol/l (3.5-5.1); SODIUM 139 mmol/l (137-146)
[2023-10-26 11:45] LABS: ALBUMIN 4.9 g/dL (3.2-5.0); SGOT/AST 63 u/l (17-59); TOTAL PROTEIN 8.4 g/dL (6.3-8.2)
[2023-10-26 11:55] VITALS: BP 147/90
[2023-10-26 12:00] VITALS: BP 139/87
[2023-10-26 12:30] VITALS: BP 136/79
[2023-10-26 13:00] VITALS: BP 141/83
[2023-10-26] MEDS ORDERED: MOTRIN800 MG PO (13:06)
[2023-10-26 13:25] VITALS: BP 141/83
== END 2023-10-26 13:26 | disposition home or self-care (01) | DRG 392 ==
LOC: ED 11:01
PROVIDERS: Emergency Medicine
DX: R10.9 Unspecified abdominal pain (principal); E11.649 Type 2 diabetes mellitus with hypoglycemia without coma